=== PATIENT | male | born 1940 | race Caucasian/White ===

== ENCOUNTER 2018-08-31 09:24 | Emergency (ER) | payer MEDICARE, OTHER ==
[~2018-08-31] VITALS: Ht 182.9 cm; Wt 81.2 kg
[2018-08-31] MEDS ORDERED: ZESTRIL40 MG PO ×2 (09:37→09:39)
[2018-08-31] MEDS ORDERED: CHLORTHALIDONE25 MG PO (09:37)
[2018-08-31] MEDS ORDERED: ASPIR 8181 MG PO (09:38)
[2018-08-31] MEDS ORDERED: ATORVASTATIN CA20 MG PO (09:38)
[2018-08-31] MEDS ORDERED: CENTRUM SILVER1 EAC3 PO (09:38)
[2018-08-31] MEDS ORDERED: RANITIDINE HCL150 M1 PO (09:39)
== END 2018-08-31 10:26 | disposition home or self-care (01) ==
LOC: ED 09:24
PROC: 0HQFXZZ Repair Right Hand Skin, External Approach (ICD-10-PCS; principal; 2018-08-31)
DX: S61.411A Laceration without foreign body of right hand, initial encounter (principal); W26.8XXA Contact with other sharp object(s), not elsewhere classified, initial encounter; Z79.899 Other long term (current) drug therapy; Z79.82 Long term (current) use of aspirin
CPT/HCPCS: 12002; 90471; 90715; 99282-25

== ENCOUNTER 2020-01-24 07:20 | Emergency (ER) | payer MEDICARE, OTHER ==
[~2020-01-24] VITALS: Ht 182.9 cm; Wt 124.7 kg
--- OUTSIDE RECORDS SUMMARY | ~2020-01-24 | XMS | Encounter Summary ---
Demographics + + + | Address | [address] | | | [place] [address] | + + + | Home Phone | | + + + | Preferred Language | Unknown | + + + | Marital Status | | + + + | Protestant Affiliation | Unknown | + + + | Race | Unknown | + + + | Ethnic Group | Unknown | + + + Author + + + | Author | [facility] | | | and [place] | + + + | Organization | [facility] | | | and [place] | + + + | Address | Unknown | + + + | Phone | Unavailable | + + + Support + + +---------+ + | Name | Relationship | Address | Phone | + + +---------+ + | Kaye Ramos | ECON | Unknown | | + + +---------+ + Care Team Providers + +------+ + | Care Manager Mall Name | Role | Phone | + +------+ + | Lorena Aldridge | PCP | | + +------+ + Reason for Visit + + + | Reason | Comments | + + + | Hypertension | regular follow up | + + + Encounter Details +--------+---------+ + + + | Date | Type | Department | Care Team | Description | +--------+---------+ + + + | 07/18/ | Office | [facility] | Lorena Aldridge | HYPERTENSION, | | 2011 | Visit | [facility] [place] | L, 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[address] | 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, | | | | [address] | [address] [place] | CONTROLLED (Primary | | | | [place] | [address] | Dx); Hyperlipidemia; | | | | [address] | | Impaired fasting | | | | [phone] | | glucose; Prostate | | | | | | cancer screening; | | | | | | Needs flu shot; | | | | | | Exposure to | | | | | | Streptococcal | | | | | | pharyngitis | +--------+---------+ + + + Social History + +-------+ +--------+ + | Tobacco Use | Types | Packs/Day | Years | Date | | | | | Used | | + +-------+ +--------+ + | Former Smoker | | | | Quit: 05/26/1986 | + +-------+ +--------+ + + + +---------+ + | Alcohol Use | Drinks/Week | oz/Week | Comments | + + +---------+ + | Yes | | | 6 pack a day | + + +---------+ + + + + | Sex Assigned at | Date Recorded | | | | + + + | Not on file | | + + + documented as of this encounter Last Filed Vital Signs + + + + + | Vital Sign | Reading | Time Taken | Comments | + + + + + | Blood Pressure | 134/76 | 07/18/2012 8:06 AM | | | | | PST | | + + + + + | Pulse | 76 | 07/18/2012 8:06 AM | | | | | PST | | + + + + + | Temperature | - | - | | + + + + + | Respiratory Rate | 18 | 07/18/2012 8:06 AM | | | | | PST | | + + + + + | Oxygen Saturation | - | - | | + + + + + | Inhaled Oxygen | - | - | | | Concentration | | | | + + + + + | Weight | 117.5 kg (259 lb) | 07/18/2012 8:06 AM | | | | | PST | | + + + + + | Height | - | - | | + + + + + | Body Mass Index | 35.37 | 07/07/2010 12:00 AM | | | | | PST | | + + + + + documented in this encounter Patient Instructions Patient Instructions Lorena Shaw ARNP - 07/18/2012 8:47 AM PSTmoniter blood p ressure documented in this encounter Progress Notes Lorena Shaw ARNP - 07/18/2012 8:26 AM PSTFormatting of this note might be dif ferent from the original. Subjective: Patient ID: Talha Ramos is a 71 y.o. male. HPI Patient's medications, allergies, past medical, surgical, social and family histories were reviewed and updated as appropriate. Here for follow-up of his hypertension Hypertension: Control and Compliance Low Sodium Diet: yes Medication compliance: good Home Blood Pressures: 1120's/60. BP: 134/76 mmHg HYPERLIPIDEMIA: Diet: Low fat, low carb dietary compliance: good Additional measures started by the patient to reduce lipids include: aerobic exercise fiber ASA Has been exposed to strep throat yesterday and is worried about getting this. No symptoms y et. Due for fasting labs and has orders already at [facility]. Review of Systems Denies Myalgias, abdominal pain, jaundice, constipation. Denies side effects of medications No evidence of medication toxicity Shortness of breath Pt denies: No headache, visual symptoms, neurologic problems, syncope No chest pain, palpitations, RODRIGUEZ, orthopnea, PND, peripheral edema No side effects from any antihypertensive medications Objective: Physical Exam Nursing note and vitals reviewed. Constitutional: He is oriented to person, place, and time. He appears well-developed and we ll-nourished. HENT: Head: Normocephalic and atraumatic. Right Ear: External ear normal. Left Ear: External ear normal. Mouth/Throat: Oropharynx is clear and moist. No oropharyngeal exudate. Eyes: Conjunctivae are normal. No scleral icterus. Neck: Normal range of motion. Neck supple. No JVD present. No thyromegaly present. No carotid bruits Cardiovascular: Normal rate, regular rhythm and normal heart sounds. No pedal edema Pulmonary/Chest: Effort normal and breath sounds normal. No respiratory distress. Musculoskeletal: He exhibits no edema. Lymphadenopathy: He has no cervical adenopathy. Neurological: He is alert and oriented to person, place, and time. Coordination normal. Skin: Skin is warm and dry. Psychiatric: He has a normal mood and affect. Assessment: 1. HYPERTENSION, ESSENTIAL, CONTROLLED Comprehensive metabolic panel, UA w/microscopic if indicated, amLODIPine (NORVASC) 5 mg tablet, hydrochlorothiazide 25 mg tablet, lisinopril (P RINIVIL,ZESTRIL) 40 MG tablet, NIFEdipine (PROCARDIA XL) 60 mg ER tablet 2. Hyperlipidemia Comprehensive metabolic panel, Lipid Profile, atorvaSTATin (LIPITOR) 20 mg tablet 3. Impaired fasting glucose Hemoglobin A1c 4. Prostate cancer screening PSA screen 5. Needs flu shot Flu vaccine greater than or equal to 3yo preservative free IM 6. Exposure to Streptococcal pharyngitis Plan: 1. HYPERTENSION, ESSENTIAL, CONTROLLED -. Blood pressure stable and goals discussed -. Continue current medications - Advised low salt diet - Advised regular cardiovascular exercise -. Labs ordered and will the patient - Follow up as needed if blood pressures are above goal Encouraged to cut back on alcohol 2. Hyperlipidemia -. Take meds as directed -. Discussed regular cardiovascular exercise and maintaining healthy wt. -. Avoid high fat/cholesterol diet -. Lipid panel and LFT's labs ordered 3. Impaired fasting glucose Continue exercise and A1C ordered 4. Prostate cancer screening PSA ordered and will send report to his urologist in [facility] 5. Needs flu shot Immunization counseling discussed by myself and updated today. Encourage d him to get Shingles vaccine as well. 6. Exposure to strep throat RX for amoxicillin sent to pharmacy and instructed patient t o start if he develops a sore throat. If he starts and is doesn't improve after being on med ss for 48 hours he is to follow-up. Med profile discussed documented in this encounter Miscellaneous Notes Miscellaneous - AURY MARK - 07/18/2012 12:00 AM PST documented in this encounter Plan of Treatment + +------+--------+ + + | Name | Type | Priori | Associated Diagnoses | Order Schedule | | | | ty | | | + +------+--------+ + + | Comprehensive | Lab | Routin | Hyperlipidemia | 1 Occurrences | | metabolic panel | | e | HYPERTENSION, | starting 07/18/2012 | | | | | ESSENTIAL, | until 07/18/2013 | | | | | CONTROLLED | | + +------+--------+ + + | Lipid Profile | Lab | Routin | Hyperlipidemia | 1 Occurrences | | | | e | | starting 07/18/2012 | | | | | | until 07/18/2013 | + +------+--------+ + + | Hemoglobin A1c | Lab | Routin | Impaired fasting | 1 Occurrences | | | | e | glucose | starting 07/18/2012 | | | | | | until 07/18/2013 | + +------+--------+ + + | UA w/microscopic if | Lab | Routin | HYPERTENSION, | 1 Occurrences | | indicated | | e | ESSENTIAL, | starting 07/18/2012 | | | | | CONTROLLED | until 07/18/2013 | + +------+--------+ + + | PSA screen | Lab | Routin | Prostate cancer | 1 Occurrences | | | | e | screening | starting 07/18/2012 | | | | | | until 07/18/2013 | + +------+--------+ + + documented as of this encounter Visit Diagnoses + + | Diagnosis | + + | HYPERTENSION, ESSENTIAL, CONTROLLED - Primary Unspecified essential hypertension | + + | Hyperlipidemia Other and unspecified hyperlipidemia | + + | Impaired fasting glucose | + + | Prostate cancer screening Special screening for malignant neoplasm of prostate | + + | Needs flu shot Need for prophylactic vaccination and inoculation against influenza | + + | Exposure to Streptococcal pharyngitis Contact with or exposure to other communicable | | diseases | + + documented in this encounter"
--- OUTSIDE RECORDS SUMMARY | ~2020-01-24 | XMS | Encounter Summary ---
Demographics + + + | Address | [address] | | | [place] [address] | + + + | Home Phone | | + + + | Preferred Language | Unknown | + + + | Marital Status | | + + + | Jainism Affiliation | Unknown | + + + | Race | Unknown | + + + | Ethnic Group | Unknown | + + + Author + + + | Author | [facility] | | | and [place] | + + + | Organization | [facility] | | | and [place] | + + + | Address | Unknown | + + + | Phone | Unavailable | + + + Support + + +---------+ + | Name | Relationship | Address | Phone | + + +---------+ + | Kaye Rmaos | ECON | Unknown | | + + +---------+ + Care Team Providers + +------+ + | Care Mail Clerk Bills Name | Role | Phone | + +------+ + | Lorena Aldridge | PCP | | + +------+ + Reason for Visit + + + | Reason | Comments | + + + | Hypertension | 6 month follow-up | + + + | Hyperlipidemia | 6 month follow-up | + + + Encounter Details +--------+---------+ + + + | Date | Type | Department | Care Team | Description | +--------+---------+ + + + | 07/21/ | Office | [facility] | Lorena Aldridge | HYPERTENSION, | | 2012 | Visit | [facility] [place] | L, 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 [address] | [place], | | | | [address] | [address] [place] | CONTR[place]LLED (Primary | | | | [place] | [address] | Dx); Hyperlipidemia; | | | | [address] | | Impaired fasting | | | | [phone] | | glucose; Screening | | | | | | PSA (prostate | | | | | | specific antigen) | +--------+---------+ + + + Social History [...] + + + | Blood Pressure | 130/72 | 07/21/2013 7:19 AM | | | | | PST | | + + + + + | Pulse | 67 | 07/21/2013 7:19 AM | | | | | PST | | + + + + + | Temperature | 36.6 C (97.8 F) | 07/21/2013 7:19 AM | | | | | PST | | + + + + + | Respiratory Rate | 16 | 07/21/2013 7:19 AM | | | | | PST | | + + + + + | Oxygen Saturation | 98% | 07/21/2013 7:19 AM | | | | | PST | | + + + + + | Inhaled Oxygen | - | - | | | Concentration | | | | + + + + + | Weight | 120.7 kg (266 lb) | 07/21/2013 7:19 AM | | | | | PST | | + + + + + | Height | 185.4 cm (6' 1") | 07/21/2013 7:19 AM | | | | | PST | | + + + + + | Body Mass Index | 35.09 | 07/21/2013 7:19 AM | | | | | PST | | + + + + + documented in this encounter Progress Notes Lorena Aldridge ARNP - 07/21/2013 7:30 AM PSTFormatting of this note might be differen t from the original. Subjective: Talha Ramos is a 72 y.o. male patient of Lorena Aldridge [facility]. Chief Complaint: Hypertension and Hyperlipidemia Here is here for his 6 month follow-up of HTN and high cholesterol Hypertension: Control and Compliance Low Sodium Diet: yes Medication compliance: good Home Blood Pressures: not checking BP: 130/72 mmHg Pt denies: No headache, visual symptoms, neurologic problems, syncope No chest pain, palpitations, peripheral edema No side effects from any antihypertensive medications HYPERLIPIDEMIA: Diet: Low fat, low carb dietary compliance: good Denies side effects of medications No evidence of medication toxicity Denies Myalgias, abdominal pain, jaundice, constipation. Needs check of PSA for his urologist. No Known Allergies Medications: He has a current medication list which includes the following prescription(s): amlodipine, aspirin, atorvastatin, calcium carbonate antacid, vitamin d3, hydrochlorothiazide, lisinopri l, a thru z advanced, nifedipine, zantac, and trospium. Past Medical History He has a past medical history of Prostatism; Nocturia; Alcohol abuse; Obesity; Metabolic sy ndrome; Basal cell carcinoma; Actinic keratosis; and Shoulder bursitis. Past Surgical History He has past surgical history that includes Tonsillectomy and cataract x2 both eyes. Family History: His family history includes Alzheimer's disease in his mother; Heart attack in his father; Heart disease in his father; and High blood pressure in his father. Social History: He reports that he quit smoking about 27 years ago. He does not have any smokeless tobacco history on file. He reports that he drinks alcohol. He reports that he does not use illicit drugs. Review of Systems Pertinent items are noted in HPI. Objective: BP 130/72 | Pulse 67 | Temp 36.6 C (97.8 F) (Temporal) | Resp 16 | Ht 1.854 m (6' 1") | Wt 120.657 kg (266 lb) | BMI 35.09 kg/m2 | SpO2 98% General Appearance: Alert, cooperative, no distress, appears stated age Head: Normocephalic, without obvious abnormality, atraumatic Eyes: PERRL, conjunctiva/corneas clear Ears: Normal TM's and external ear canals, and acuity Nose: Nares normal Throat: Lips, mucosa, and tongue normal; Posterior pharynx normal Neck: Supple, symmetrical, no adenopathy, thyroid: not enlarged, symmetric, no tenderness/m ass/nodules, no carotid bruit or JVD Lungs: Clear to auscultation bilaterally, respirations unlabored Heart: Regular rate and rhythm, S1, S2 normal, no murmur, rub or gallop Extremities: Extremities normal, atraumatic, no cyanosis or edema Skin: Skin color, texture, turgor normal, no rashes or lesions Neurologic: Nonfocal. Alert and oriented. Balance and gait normal. No results found for this or any previous visit. Assessment and Plans: Talha was seen today for hypertension and hyperlipidemia. Diagnoses and associated orders for this visit: Hypertension, essential, controlled -. Blood pressure stable and goals discussed -. Continue current medications - Advised low salt diet - Advised regular cardiovascular exercise -. Labs ordered and will notify patient - Follow up as needed if blood pressures are above goal - Comprehensive Metabolic Panel; Future - Microalbumin/Creatinine Ratio, Urine; Future - amLODIPine (NORVASC) 5 mg tablet; Take 1 tablet by mouth Daily. - hydrochlorothiazide 25 mg tablet; Take 1 tablet by mouth every morning. - lisinopril (PRINIVIL,ZESTRIL) 40 MG tablet; Take 1 tablet by mouth 2 times daily. - NIFEdipine (PROCARDIA XL) 60 mg ER tablet; Take 1 tablet by mouth Daily. Hyperlipidemia -. Take meds as directed -. Discussed regular cardiovascular exercise and maintaining healthy wt. -. Avoid high fat/cholesterol diet -. Lipid panel and LFT's ordered - Lipid Profile; Future - atorvaSTATin (LIPITOR) 20 mg tablet; Take 0.5 tablets by mouth Daily. 10 mg by mouth eyad y Impaired fasting glucose - Microalbumin/Creatinine Ratio, Urine; Future - Hemoglobin A1C; Future Screening psa (prostate specific antigen) - PSA, Screen; Future Care instructions and warning signs were discussed. Medications per orders. Refilled for one year Labs and investigations per orders. Recheck 6 months. Sooner prn. Orders for labs to be done at [facility] provided This note was dictated using [employer] voice recognition software. Every attempt was made for accuracy, but grammatical errors may exist. If there are questions regarding this, please co ntact provider. d ocumented in this encounter Plan of Treatment + +------+--------+ + + | Name | Type | Priori | Associated Diagnoses | Order Schedule | | | | ty | | | + +------+--------+ + + | Comprehensive | Lab | Routin | HYPERTENSION, | 1 Occurrences | | Metabolic Panel | | e | ESSENTIAL, | starting 07/21/2013 | | | | | CONTROLLED | until 07/21/2014 | + +------+--------+ + + | Lipid Profile | Lab | Routin | Hyperlipidemia | 1 Occurrences | | | | e | | starting 07/21/2013 | | | | | | until 07/21/2014 | + +------+--------+ + + | Microalbumin/Creatin | Lab | Routin | HYPERTENSION, | 1 Occurrences | | ine Ratio, Urine | | e | ESSENTIAL, | starting 07/21/2013 | | | | | CONTROLLED Impaired | until 07/21/2014 | | | | | fasting glucose | | + +------+--------+ + + | Hemoglobin A1C | Lab | Routin | Impaired fasting | 1 Occurrences | | | | e | glucose | starting 07/21/2013 | | | | | | until 07/21/2014 | + +------+--------+ + + | PSA, Screen | Lab | Routin | Screening PSA | 1 Occurrences | | | | e | (prostate specific | starting 07/21/2013 | | | | | antigen) | until 07/21/2014 | + +------+--------+ + + documented as of this encounter Visit Diagnoses + + | Diagnosis | + + | HYPERTENSION, ESSENTIAL, CONTROLLED - Primary Unspecified essential hypertension | + + | Hyperlipidemia Other and unspecified hyperlipidemia | + + | Impaired fasting glucose | + + | Screening PSA (prostate specific antigen) Special screening for malignant neoplasm of | | prostate | + + documented in this encounter
--- OUTSIDE RECORDS SUMMARY | ~2020-01-24 | XMS | Encounter Summary ---
Demographics + + + | Address | [address] | | | [place] [address] | + + + | Home Phone | | + + + | Preferred Language | Unknown | + + + | Marital Status | | + + + | Judaism Affiliation | Unknown | + + + | Race | Unknown | + + + | Ethnic Group | Unknown | + + + Author + + + | Author | [facility] | | | and [place] | + + + | Organization | [facility] | | | and [place] [...] Team Providers + +------+ + | Care Pleat Taper Name | Role | Phone | + +------+ + PCP | Unavailable | + +------+ + Encounter Details +--------+ + + + + | Date | Type | Department | Care Team | Description | +--------+ + + + + | 06/04/ | [facility] | [facility] | Lorena Aldridge | | | 2007 | Encounter | MED CTR XRAY [address] | L, 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
--- OUTSIDE RECORDS SUMMARY | ~2020-01-24 | XMS | Encounter Summary ---
Demographics + + + | Address | [address] | | | [place] [address] | + + + | Home Phone | | + + + | Preferred Language | Unknown | + + + | Marital Status | | + + + | Mu-Ism Affiliation | Unknown | + + + | Race | Unknown | + + + | Ethnic Group | Unknown | + + + Author + + + | Author | [facility] | | | and [place] | + + + | Organization | [facility] | | | and [place] [...] Team Providers + +------+ + | Care Industrial Retrofit Designer Name | Role | Phone | + +------+ + | Lorena Aldridge | PCP | | + +------+ + Reason for Visit + +--------+ + | Reason | Onset | Comments | | | Date | | + +--------+ + | Medication Refill | 08/14/ | | | | 2012 | | + +--------+ + Encounter Details +--------+--------+ + + + | Date | Type | Department | Care Team | Description | +--------+--------+ + + + | 08/14/ | Refill | [facility] | Lorena Aldridge | Medication Refill | | 2012 | | [facility] | [place], [place] [address] | | | | | [address] | [place] | | | | | [place] | [address] | | | | | [address] | | | | | | [phone] | | | +--------+--------+ + + + Social History + +-------+ [...] filedocumented as of this encounter Visit Diagnoses + + | Diagnosis | + + | HYPERTENSION, ESSENTIAL, CONTROLLED - Primary Unspecified essential hypertension | + + documented in this encounter"
--- OUTSIDE RECORDS SUMMARY | ~2020-01-24 | XMS | Encounter Summary ---
Demographics + + + | Address | [address] | | | [place] [address] | + + + | Home Phone | | + + + | Preferred Language | Unknown | + + + | Marital Status | | + + + | Buddhist Affiliation | Unknown | + + + | Race | Unknown | + + + | Ethnic Group | Unknown | + + + Author + + + | Author | [facility] | | | and [place] | + + + | Organization | [facility] | | | and [place] [...] Team Providers + +------+ + | Care Literature Professor Name | Role | Phone | + +------+ + | Lorena Aldridge | PCP | | + +------+ + Encounter Details +--------+ + + + + | Date | Type | Department | Care Team | Description | +--------+ + + + + | 04/03/ | Abstract | [facility] | [facility] | | | 2011 | | Conversion Location | SR | | | | | [address] | | | | | | [place], [place] | | | | | | [address] | | | | | | [phone] | | | +--------+ + + + [...] + + + | Blood Pressure | 130/70 | 01/17/2012 12:00 AM | | | | | PDT | | + + + + + | Pulse | - | - | | + + + + + | Temperature | - | - | | + + + + + | Respiratory Rate | - | - | | + + + + + | Oxygen Saturation | - | - | | + + + + + | Inhaled Oxygen | - | - | | | Concentration | | | | + + + + + | Weight | 119.2 kg (262 lb | 01/17/2012 12:00 AM | | | | 11.2 oz) | PDT | | + + + + + | Height | 182.2 cm (5' 11.75") | 07/07/2010 12:00 AM | | | | | PST | | + + + + + | Body Mass Index | 35.88 | 07/07/2010 12:00 AM | | | | | PST | | + + + + + documented in this encounter Plan of Treatment Not on filedocumented as of this encounter Visit Diagnoses Not on filedocumented in this encounter
--- OUTSIDE RECORDS SUMMARY | ~2020-01-24 | XMS | Encounter Summary ---
Demographics + + + | Address | [address] | | | [place] [address] | + + + | Home Phone | | + + + | Preferred Language | Unknown | + + + | Marital Status | | + + + | Mosque Affiliation | Unknown | + + + | Race | Unknown | + + + | Ethnic Group | Unknown | + + + Author + + + | Author | [facility] | | | and [place] | + + + | Organization | [facility] | | | and [place] [...] Team Providers + +------+ + | Care Hand Blocker Name | Role | Phone | + +------+ + | Lorena Aldridge | PCP | | + +------+ + Encounter Details +--------+ + + + + | Date | Type | Department | Care Team | Description | +--------+ + + + + | 01/06/ | Hospital | [facility] | Lorena Aldridge | | | 2010 | Encounter | MED CTR LABORATORY | KRISHNA Granados [address] | | | | | [address] | [place] | | | | | [place] | [address] | | | | | [address] | | | | | | [phone] | | | +--------+ + + + [...] + + documented as of this encounter Medications at Time of Discharge + + + +---------+ + + | Medication | Sig | Dispensed | Refills | Start | End Date | | | | | | Date | | + + + +---------+ + + | Calcium Carbonate | CAPS two tablets by | | 0 | 01/06/20 | | | Antacid | mouth in the pm | | | 10 | | | (MARIA ALEJANDRA | | | | | | | ANTACID PO) | | | | | | + + + +---------+ + + | Cholecalciferol | Take 2,000 Units by | | 0 | 01/06/20 | | | (VITAMIN D3) 2000 | mouth Daily. | | | 10 | | | UNITS CAPS | | | | | | + + + +---------+ + + | Multiple | one tablet by mouth | | 0 | 01/06/20 | | | Vitamins-Minerals (A | daily | | | 10 | | | THRU Z ADVANCED) | | | | | | | TABS | | | | | | + + + +---------+ + + | ranitidine | Take 150 mg by mouth | | 0 | 01/06/20 | | | (ZANTAC) 150 MG | every evening. | | | 10 | | | capsule | | | | | | + + + +---------+ + + | amLODIPine | Take 5 mg by mouth | | 0 | 01/07/20 | | | (NORVASC) 5 mg | Daily. | | | 11 | 2 | | tablet | | | | | | + + + +---------+ + + | Aspirin | Take 325 mg by mouth | | 0 | 01/06/20 | | | Buf,UcMrp-VtGad-HnTm | Daily. | | | 10 | 3 | | r, (ASCRIPTIN) 325 | | | | | | | MG TABS | | | | | | + + + +---------+ + + | atorvaSTATin | 10 mg by mouth daily | | 0 | 07/07/20 | | | (LIPITOR) 20 mg | | | | 10 | 2 | | tablet | | | | | | + + + +---------+ + + | lisinopril | Take 40 mg by mouth | | 0 | 07/07/20 | | | (PRINIVIL,ZESTRIL) | 2 times daily. | | | 10 | 2 | | 40 MG tablet | | | | | | + + + +---------+ + + | tolterodine | Take 4 mg by mouth | | 0 | 01/06/20 | | | (DETROL LA) 4 MG 24 | Daily. | | | 10 | 3 | | hr capsule | | | | | | + + + +---------+ + + documented as of this encounter Plan of Treatment Not on filedocumented as of this encounter Visit Diagnoses Not on filedocumented in this encounter"
--- OUTSIDE RECORDS SUMMARY | ~2020-01-24 | XMS | Encounter Summary ---
Demographics + + + | Address | [address] | | | [place] [address] | + + + | Home Phone | | + + + | Preferred Language | Unknown | + + + | Marital Status | | + + + | Confucianist Affiliation | Unknown | + + + | Race | Unknown | + + + | Ethnic Group | Unknown | + + + Author + + + | Author | [facility] | | | and [place] | + + + | Organization | [facility] | | | and [place] [...] Team Providers + +------+ + | Care Inspector Final Assembly Mechanical Name | Role | Phone | + +------+ + PCP | Unavailable | + +------+ + Encounter Details +--------+ + + + + | Date | Type | Department | Care Team | Description | +--------+ + + + + | 03/20/ | Hospital | [facility] | | | | 1999 | Encounter | MED CTR GENERIC OP | | | | | | CONV DEPT [address] | | | | | | [place], | | | | | | [place] [address] | | | | | | [phone] | | | +--------+ + + + [...]
--- OUTSIDE RECORDS SUMMARY | ~2020-01-24 | XMS | Encounter Summary ---
Demographics + + + | Address | [address] | | | [place] [address] | + + + | Home Phone | | + + + | Preferred Language | Unknown | + + + | Marital Status | | + + + | Temple Affiliation | Unknown | + + + | Race | Unknown | + + + | Ethnic Group | Unknown | + + + Author + + + | Author | [facility] | | | and [place] | + + + | Organization | [facility] | | [...] Team Providers + +------+ + | Care Almond Huller Name | Role | Phone | + +------+ + | Lorena Aldridge | PCP | | + +------+ + Encounter Details +--------+ + + + + | Date | Type | Department | Care Team | Description | +--------+ + + + + | 07/04/ | Abstract | [facility] | Lorena Aldridge | | | 2011 | | MEDICINE [place] | KR[place]NA Granados [address] | | | | | [address] | [place] [place] | | | | | [place] | [address] | | | | | [address] | | | | | | [phone] | | | +--------+ + + + [...] +---------+ + | Yes | | | | + + +---------+ + + + + | Sex Assigned at | Date Recorded | | | | + + + | Not on file | | + + + documented as of this encounter Plan of Treatment Not on filedocumented as of this encounter Visit Diagnoses Not on filedocumented in this encounter"
--- OUTSIDE RECORDS SUMMARY | ~2020-01-24 | XMS | Encounter Summary ---
Demographics + + + | Address | [address] | | | [place] [address] | + + + | Home Phone | | + + + | Preferred Language | Unknown | + + + | Marital Status | | + + + | Episcopalian Affiliation | Unknown | + + + | Race | Unknown | + + + | Ethnic Group | Unknown | + + + Author + + + | Author | [facility] | | | and [place] | + + + | Organization | [facility] | | | and [...] Team Providers + +------+ + | Care Community Mental Health Social Worker Name | Role | Phone | + +------+ + | Lorena Aldridge | PCP | | + +------+ + Encounter Details +--------+ + + + + | Date | Type | Department | Care Team | Description | +--------+ + + + + | 07/07/ | Hospital | [facility] | Lorena Aldridge | | | 2009 | Encounter | MED CTR LABORATORY | [address] Granados [address] | | | | | [address] | [place] | | | | | [place] | [address] | | | | | [address] | | | | | | [phone] | | | +--------+ + + + [...] | 0 | 01/06/20 | | | Buf,CaCcc-QvChw-FtIy | Daily. | | | 10 | [...]
--- OUTSIDE RECORDS SUMMARY | ~2020-01-24 | XMS | Encounter Summary ---
Demographics + + + | Address | [address] | | | [place] [address] | + + + | Home Phone | | + + + | Preferred Language | Unknown | + + + | Marital Status | | + + + | Gnosticism Affiliation | Unknown | + + + | Race | Unknown | + + + | Ethnic Group | Unknown | + + + Author + + + | Author | [facility] | | | and [place] | + + + | Organization | [facility] | | | and [place] [...] Team Providers + +------+ + | Care Roll Scale Worker Name | Role | Phone | + +------+ + PCP | Unavailable | + +------+ + Encounter Details +--------+ + + + + | Date | Type | Department | Care Team | Description | +--------+ + + + + | 06/15/ | [facility] | [facility] | Lorena Aldridge | | | 2007 | Encounter | MED CTR XRAY [address] | L, SENIOR TEST ANALYST [address] | | | | | [place] | [place] | | | | | [place] [address] | [address] | | | | | [phone] | | | +--------+ + + + [...]
--- OUTSIDE RECORDS SUMMARY | ~2020-01-24 | XMS | Clinical Summary ---
Demographics + + + | Address | [address] | | | [place] [address] | + + + | Home Phone | | + + + | Preferred Language | Unknown | + + + | Marital Status | | + + + | Anglican Affiliation | Unknown | + + + | Race | Unknown | + + + | Ethnic Group | Unknown | + + + Author + + + | Author | [facility] | | | and [place] | + + + | Organization | [facility] | | | and [place] [...] Team Providers + +------+ + | Care Cloth Desizing Range Tender Name | Role | Phone | + [...] | | e | | THRU Z ADVANCED) | | | | 10 | | [...] + +--------+ | MEDICARE | MEDICA | [id number] | 10/22/19 | [phone] | | Medica | | | RE | | 08-Pre | 5 | | re | | | PART A | | sent | | | | | | AND B | | | | | | + +--------+ +--------+ + +--------+ | MODA | MODA | [id number] | 02/21/20 | [phone] | [address] | Indemn | | | HEALTH | | 12-Pre | 9 | [address] | ity | | | MDCR | | sent | | [place], | | | | [place] | | | | [place] [address] | | + +--------+ +--------+ + +--------+ + +--------+ +--------+ + + | Guarantor Name | Accoun | Relation to | Date | Phone | Billing Address | | | t Type | Patient | of | | | | | | | | | | + +--------+ +--------+ + + | Talha Ramos | Person | Self [birth year] | | | al/Fam | | 1941 | [phone] | [place] [address] | | | love | | | 9 (Home) | | + +--------+ +--------+ + + Advance Directives + + + + + | Type | Date Recorded | Patient | Explanation | | | | Back Hoe Operator | | + + + + + | Power of | | | | | Septic Tank Setter | | | | + + + + + | Advance | | | | | Directive | | | | + + + + +
--- OUTSIDE RECORDS SUMMARY | ~2020-01-24 | XMS | Encounter Summary ---
Demographics + + + | Address | [address] | | | [place] [address] | + + + | Home Phone | | + + + | Preferred Language | Unknown | + + + | Marital Status | | + + + | Islam Affiliation | Unknown | + + + | Race | Unknown | + + + | Ethnic Group | Unknown | + + + Author + + + | Author | [facility] | | | and [place] | + + + | Organization | [facility] | | | and [place] [...] Team Providers + +------+ + | Care Dinker Name | Role | Phone | + +------+ + | Lorena Aldridge | PCP | | + +------+ + Reason for Visit +--------+--------+ + | Reason | Onset | Comments | | | Date | | +--------+--------+ + | Other | 07/18/ | | | | 2011 | | +--------+--------+ + Encounter Details +--------+ + + + + | Date | Type | Department | Care Team | Description | +--------+ + + + + | 07/18/ | Telephone | [facility] | Lorena Aldrdige | Other | | 2011 | | MEDICINE [place] | L, KRISHNA [address] | | | | | [address] | [address] [place] | | | | | [place] | [address] | | | | | [address] | | | | | | [phone] | | | +--------+ + + + [...] + + documented as of this encounter Miscellaneous Notes Telephone Encounter - Mary Redd - 07/18/2012 5:51 PM PSTPatient notified.Electronicall y signed by Mary Redd at 07/18/2012 5:52 PM PSTTelephone Encounter - Maranda Mcgraw RN - 07/18/2012 5:10 PM PSTShortage should be temporary. One month supply sent to [facility] in [place]. Please let patient know.Electronically jake d by Maranda Mcgraw RN at 07/18/2012 5:11 PM PSTTelephone Encounter - Sully Gutierrez - 07/18/2012 1:52 PM PSTPatient received a call from [facility]. They t old him that they do not have any Lipitor and they are not sure how long it will be before t hey get more. He is wondering if he can get a 1 month supply called in to a local pharmacy, [facility] in [place], or if there is something else that Lorena suggests? He has 9 pills left. He can be reached at [phone]. Sully Gutierrez documented in this enco unter Plan of Treatment Not on filedocumented as of this encounter Visit Diagnoses + + | Diagnosis | + + | Hyperlipidemia - Primary Other and unspecified hyperlipidemia | + + documented in this encounter"
--- OUTSIDE RECORDS SUMMARY | ~2020-01-24 | XMS | Encounter Summary ---
Demographics + + + | Address | [address] | | | [place] [address] | + + + | Home Phone | | + + + | Preferred Language | Unknown | + + + | Marital Status | | + + + | Christianity Affiliation | Unknown | + + + | Race | Unknown | + + + | Ethnic Group | Unknown | + + + Author + + + | Author | [facility] | | | and [place] | + + + | Organization | [facility] | | | and [...] Team Providers + +------+ + | Care Rock Loader Name | Role | Phone | + [...] + + | 01/16/ | Office | [facility] | Lorena Aldridge | HYPERTENSION, | | 2012 | Visit | [facility] | Roberta, KRISHNA [address] | ESSENTIAL, | | | | [address] | [address] [place] [place] | CONTROLLED (Primary | | | | [place] | [address] | Dx); Hyperlipidemia; | | | | [address] | | Impaired fasting | | | | [phone] | | glucose | +--------+---------+ + + [...] matzoh crackers AVOID: Salted crackers, pretzels, popcorn; german toast, pancakes, muffins FRUITS & DESSERTS OK: [...] sauce, regular gravy, regular salad dressin g [phone] [facility], [address] [place] [address]. All rights reserve d. This information is not intended as a substitute for professional medical care. Always fo llow your healthcare professional's instructions. documented in this encounter Progress Notes Lorena Aldridge ARNP - 01/16/2013 9:43 AM PDTFormatting of this note might be differen t from the original. Subjective: Talha Ramos is a 72 y.o. male patient of Lorena Aldridge [facility]. Chief Complaint: Medication Management and Hypertension Here [...]
--- OUTSIDE RECORDS SUMMARY | ~2020-01-24 | XMS | Encounter Summary ---
Demographics + + + | Address | [address] | | | [place] [address] | + + + | Home Phone | | + + + | Preferred Language | Unknown | + + + | Marital Status | | + + + | Episcopal Affiliation | Unknown | + + + | Race | Unknown | + + + | Ethnic Group | Unknown | + + + Author + + + | Author | [facility] | | | and [place] | + + + | Organization | [facility] | | | and [place] [...] Team Providers + +------+ + | Care Sprayer Hand Name | Role | Phone | + +------+ + | Lorena Aldridge | PCP | | + +------+ + Encounter Details +--------+ + + + + | Date | Type | Department | Care Team | Description | +--------+ + + + + | 02/17/ | Abstract | [facility] | Lorena Aldridge | | | 2013 | | MEDICINE [place] | KRISHNA Granados [address] | | | | | [address] | [place] [place] | | | | | [place] | [address] | | | | | [address] | | | | | | [phone] | | | +--------+ + + + [...] + + + + + + | Clarity | Clear | | [facility] | | | | | [facility] | | | | | | [facility] | | | | | [facility] - | | | | | | LABORATORY | | + + + + + + | Specific | 1.015 | 1.005 - 1.030 | [facility] | | | [place], | | | [facility] | | | Urine | | [...] Urine | | not performed | [facility] | | | | [...] | | | [place], | | | [facility] | | [...] + + | Performing | Address | City/[facility] | Phone Number | | Organization | | | | + + + + + | [facility] | [address] | [place] | [phone] | | [facility] | | [address] | | | - LABORATORY | | | | + + + + + | [facility] | [address] | [place], [place] | | | [facility] | | [address], [facility] | | | - LABORATORY | | [...] | | | | mmol/L | [facility] | | | | [...] | | | | | mg/dL | [facility] | | | | | [...] + | [facility] | [address] | [place], [place] | [phone] | | [facility] | | [address] | | | - LABORATORY | | | | + + + + + | [facility] | [address] | [place] | | | [facility] | | [email or web address] | | | - LABORATORY | | [...] | | | LAB | | | Finnish, | | | | | | External [...]
--- OUTSIDE RECORDS SUMMARY | ~2020-01-24 | XMS | Encounter Summary ---
Demographics + + + | Address | [address] | | | [place] [address] | + + + | Home Phone | | + + + | Preferred Language | Unknown | + + + | Marital Status | | + + + | Baptism Affiliation | Unknown | + + + | Race | Unknown | + + + | Ethnic Group | Unknown | + + + Author + + + | Author | [facility] | | | and [place] | + + + | Organization | [facility] | | | and [place] | [...] Team Providers + +------+ + | Care Yarn Salvager Name | Role | Phone | + [...] + + | 01/19/ | Office | [facility] | Lorena Aldridge | HYPERTENSION, | | 2013 | Visit | MEDICINE [place] | L, SLATE CUTTER [address] | [place], | | | | [address] | [address] [place] | [place]OLLED (Primary | | | | [place] | [address] | Dx); Hyperlipidemia; | | | | [address] | | Alcohol abuse | | | | [phone] | | | +--------+---------+ + + + [...] encounter Progress Notes Lorena Aldridge ARNP - 01/19/2014 8:22 AM PDTFormatting of this note might be differen t from the original. Subjective: Talha Ramos is a 73 y.o. male patient of Lorena Aldridge. Chief Complaint: Hypertension and Hyperlipidemia here for six-month followup regarding his hypertension and hyperlipidemia. He has labs do ne at the [facility] and has not had those done yet. [...] carcinoma; Actinic keratosis; Shoulder bursitis; and Glaucoma (07-21-13). Past Surgical History He has past surgical [...] Sooner prn. This note was dictated using [employer] voice recognition software. Every attempt was made [...]
[~2020-01-24 07:20] MED LIST: ASPIR 8181 MG PO; ATORVASTATIN CA20 MG PO; CENTRUM SILVER1 EAC3 PO; CHLORTHALIDONE25 MG PO; RANITIDINE HCL150 M1 PO; ZESTRIL40 MG PO
[2020-01-24] MEDS ORDERED: ALLOPURINOL100 MG PO (07:36)
[2020-01-24] MEDS ORDERED: NORCO 5-325 TA1 EACH PO (09:05)
--- NOTE | 2020-01-24 17:18 | EKG ---
[facility] [address] [facility] [place] [address] Signed Sinus rhythm with premature atrial complexes Right bundle branch block Left anterior fascicular block Bifascicular block Abnormal ECG No previous ECGs available Confirmed by FADUMO OCHOA MD ([id number]) on 01/24/2020 5:18:07 PM Electronically Signed By: FADUMO OCHOA MD 01/24/20 1718 PATIENT NAME: LES MERCADO Electrocardiogram DATE OF : 44 PHYSICIAN: FADUMO OCHOA MD REPORT #: [id number] REPORT IS CONFIDENTIAL AND NOT TO BE RELEASED WITHOUT AUTHORIZATION
== END 2020-01-24 09:31 | disposition home or self-care (01) ==
LOC: ED 07:20
DX: M25.562 Pain in left knee (principal); R60.0 Localized edema; I10 Essential (primary) hypertension; Z87.891 Personal history of nicotine dependence; Z79.899 Other long term (current) drug therapy; Z79.82 Long term (current) use of aspirin
CPT/HCPCS: 73560; 80053; 81001; 83735; 83880; 84484; 85025; 93005; 93010; 99284-25

== ENCOUNTER 2020-04-20 11:31 | Emergency (ER) | payer MEDICARE, OTHER ==
[~2020-04-20] VITALS: Ht 182.9 cm; Wt 124.7 kg
[~2020-04-20 11:31] MED LIST changes: +ALLOPURINOL100 MG PO; +NORCO 5-325 TA1 EACH PO
[2020-04-20] MEDS ORDERED: FAMOTIDINE20 MG PO (11:41)
--- NOTE | 2020-04-20 13:55 | EKG ---
[facility] [address] [facility] [place] [address] Signed Sinus tachycardia with premature atrial complexes Right bundle branch block Inferior infarct , age undetermined Anterolateral infarct , age undetermined Abnormal ECG When compared with ECG of 24-JAN-2020 07:57, Left anterior fascicular block is no longer present Anterior infarct is now present Anterolateral infarct is now present Inferior infarct is now present Confirmed by SHAE CORONEL DO ([id number]) on 04/20/2020 1:55:27 PM Electronically Signed By: SHAE CORONEL DO 04/20/20 1355 PATIENT NAME: LES MERCADO Electrocardiogram DATE OF : 44 PHYSICIAN: SHAE CORONEL DO REPORT #: [id number] REPORT IS CONFIDENTIAL AND NOT TO BE RELEASED WITHOUT AUTHORIZATION
--- NOTE | 2020-04-21 13:15 | OR ---
[facility] [address] [place], [place] [address] Signed DATE OF OPERATION: 04/20/2020 SURGEON: Richi Castro MD TIME: 01:50 p.m. PREOPERATIVE DIAGNOSIS: Systemic sepsis with hypotension, need for central venous access. POSTOPERATIVE DIAGNOSIS: Systemic sepsis with hypotension, need for central venous access. PROCEDURE: Placement of right internal jugular central venous catheter. ANESTHESIA: 1% lidocaine. INDICATIONS: A 79-year-old white man, who presented to the emergency room and evaluated by Dr. Croft and central venous catheter is requested for further management of pressor agents and fluid resuscitation. He has presumed sepsis of unknown etiology. The risks of bleeding, infection, and pneumothorax and so forth were reviewed with him and his , they understand and wished to proceed. FINDINGS: Dark, nonpulsatile blood was noted from the right internal jugular vein on first pass. Passage of the wire was without impediment. An Arrow Blue Tip triple-lumen catheter placed without problem showing dark, nonpulsatile blood upon withdrawal of the distal port. A postprocedure chest x-ray was requested; however, the patient is getting set up for a CT angiogram and verification of line placement will likely be concurrent with that study. DESCRIPTION OF PROCEDURE: The patient was placed in a Trendelenburg position with the head turned to the left. The right neck and upper infraclavicular area were prepared with a chlorhexidine solution and draped sterilely. A 1% lidocaine was injected over the right sternocleidomastoid muscle inferior to the crossing the external jugular vein. Using a Seldinger technique, the right internal jugular vein was easily accessed on first pass Electronically Signed By: RICHI CASTRO MD 04/21/20 1315 PATIENT NAME: LES MERCADO OPERATIVE REPORT DATE OF : 44 REPORT #: [id number] PHYSICIAN: RICHI CASTRO MD PCP: MORRIS GASTON REPORT IS CONFIDENTIAL AND NOT TO BE RELEASED WITHOUT AUTHORIZATION [facility] [address] [place], [place] [address] Signed showing dark nonpulsatile blood. A flexible J-wire was passed down with the needle. The needle was removed. The site was incised with an #11 blade and dilated with an enclosed blue dilator and subsequently a previously inspected and irrigated Arrow Blue Tip triple-lumen catheter passed over the wire. The wire was removed. Aspiration of the distal port showed dark nonpulsatile blood. The catheter was withdrawn several centimeters, appropriately closed and secured within close collar device and sutured. An anti-infective disk was applied as was a SorbaView dressing. A postprocedure chest x-ray was requested, but I am advised that CT angiogram will be performed, and therefore verification of lying position most expediently be undertaken on that basis. MD RACHAEL Ulrich/NICHOLAS /[id number] cc: Austin Croft MD Copies: AUSTIN CROFT MD ~ Electronically Signed By: RICHI CASTRO MD 04/21/20 1315 PATIENT NAME: LES MERCADO OPERATIVE REPORT DATE OF : 44 REPORT #: [id number] PHYSICIAN: RICHI CASTRO MD PCP: MORRIS GASTON REPORT IS CONFIDENTIAL AND NOT TO BE RELEASED WITHOUT AUTHORIZATION
--- NOTE | 2020-04-21 13:15 | CONS ---
[facility] [address], [place] [address] Signed DATE OF CONSULTATION: 04/20/2020 TIME: 1:30 p.m. PROBLEM: Significant hypotension, presumed sepsis, need for central venous access. CONSULTING PHYSICIAN: Richi Castro MD REQUESTING PHYSICIAN: Austin Croft MD PROBLEM: This 79-year-old white man has been hunting in the gaming and presents to the emergency room today feeling very poorly. He was noted to have significant hypotension and tachycardia and has been unresponsive to fluid bolus by peripheral IV. Pressor agents have been initiated and it is anticipated that he have pressor agents during the course of his evaluation for his presumed sepsis of unknown etiology. The patient denies any concurrent use of anticoagulants of any sort. He is accompanied by his . Laboratory studies showing a white count of only 11.1, hematocrit of 51.1. Chem profile showing a creatinine elevation of 1.31 and lactic acid is 6.9. Troponin is greater than 0.090. BNP of 245. Urinalysis is pending. Coag studies show a D-dimer of 2400. The patient denies any exposure to anyone with known COVID disease. REVIEW OF SYSTEMS: Denies chest pain, but does have some interscapular pain. Has no shortness of breath per se. PHYSICAL EXAMINATION: GENERAL: An obese white man accompanied by his . VITAL SIGNS: Blood pressure on my evaluation with systolic pressure of 74. His pulse was 110, initially 106 now. NECK: Shows no thyromegaly or cervical adenopathy. Trendelenburg position does left visualization of external jugular veins. Clavicles are not deformed. CHEST: Shows normal respiratory excursion without tachypnea. ABDOMEN: Obese, but soft and nontender. EXTREMITIES: Show no clubbing, cyanosis, edema, or petechiae. Electronically Signed By: RICHI CASTRO MD 04/21/20 1315 PATIENT NAME: LES MERCADO CONSULTATION DATE OF : 44 REPORT #: [id number] PHYSICIAN: RICHI CASTRO MD PCP: MORRIS GASTON REPORT IS CONFIDENTIAL AND NOT TO BE RELEASED WITHOUT AUTHORIZATION [facility] [address], [place] [address] Signed ASSESSMENT: The patient has requested for central venous access to allow for pressor agents and further critical management. The risks of bleeding, infection, pneumothorax, and other unforeseen complications related to central line placement have been reviewed with him and his . They understand and wished to proceed. A signed consent form has been obtained. MD RACHAEL Ulrich/MODL /[id number] cc: Austin Croft MD Copies: AUSTIN CROFT MD ~ Electronically Signed By: RICHI CASTRO MD 04/21/20 1315 PATIENT NAME: LES MERCADO CONSULTATION DATE OF : 44 REPORT #: [id number] PHYSICIAN: RICHI CASTRO MD PCP: MORRIS GASTON REPORT IS CONFIDENTIAL AND NOT TO BE RELEASED WITHOUT AUTHORIZATION
== END 2020-04-20 16:06 | disposition short-term general hospital (02) ==
LOC: ED 11:31
DX: I26.99 Other pulmonary embolism without acute cor pulmonale (principal); I10 Essential (primary) hypertension; Z87.891 Personal history of nicotine dependence; Z79.899 Other long term (current) drug therapy; Z79.82 Long term (current) use of aspirin
CPT/HCPCS: 36556; 51702; 71045; 71260; 80053; 81001; 83605; 83735; 83880; 84484; 85025; 85379; 85610; 85730; 93005; 93010; 99285-25; J0692; J2270; J2997; J3370; J7030; J7060; Q9967

== ENCOUNTER 2020-05-02 13:53 | Emergency (ER) | payer MEDICARE, OTHER ==
[~2020-05-02] VITALS: Ht 182.9 cm; Wt 122.5 kg
--- OUTSIDE RECORDS SUMMARY | ~2020-05-02 | XMS | Encounter Summary ---
Demographics + + + | Address | [address] | | | [place] [address] | + + + | Home Phone | | + + + | Preferred Language | Unknown | + + + | Marital Status | | + + + | Bahai Affiliation | Unknown | + + + | Race | White | + + + | Ethnic Group | Not or | + + + Author + + + | Author | [facility] | | | and [place] | + + + | Organization | [facility] | | | and [place] | + + + | Address | Unknown | + + + | Phone | Unavailable | + + + Support + + +---------+ + | Name | Relationship | Address | Phone | + + +---------+ + | Kaye Ramos | ECON | Unknown | | + + +---------+ + Care Team Providers + +------+ + | Care Fire Safety Inspector Name | Role | Phone | + +------+ + | Lorena Aldridge | PCP | | + +------+ + Reason for Visit + + + | Reason | Comments | + + + | Medication | | | Management | | + + + | Hypertension | | + + + Encounter Details +--------+---------+ + + + | Date | Type | Department | Care Team | Description | +--------+---------+ + + + | 01/16/ | Office | [facility] | Lorena Aldridge | HYPERTENSION, | | 2012 | Visit | MEDICINE [place] | [place] [address] [address] | [place], | | | | [address] | [place] [place] | CONTROLLED (Primary | | | | [place] | [address] | Dx); Hyperlipidemia; | | | | [address] | | Impaired fasting | | | | [phone] | | glucose | +--------+---------+ + + + Social History [...] + + + | Blood Pressure | 134/72 | 01/16/2013 9:30 AM | | | | | PDT | | + + + + + | Pulse | 82 | 01/16/2013 9:30 AM | | | | | PDT | | + + + + + | Temperature | 36.8 C (98.2 F) | 01/16/2013 9:30 AM | | | | | PDT | | + + + + + | Respiratory Rate | 16 | 01/16/2013 9:30 AM | | | | | PDT | | + + + + + | Oxygen Saturation | 96% | 01/16/2013 9:30 AM | | | | | PDT | | + + + + + | Inhaled Oxygen | - | - | | | Concentration | | | | + + + + + | Weight | 119.3 kg (263 lb) | 01/16/2013 9:30 AM | | | | | PDT | | + + + + + | Height | - | - | | + + + + + | Body Mass Index | 35.92 | 07/07/2010 12:00 AM | | | | | PST | | + + + + + documented in this encounter Patient Instructions Patient Instructions Lorena Aldridge ARNP - 01/16/2013 9:46 AM PDTLOW-SALT DIET (2 gra ms/day) This diet eliminates foods that are high in salt and restricts the amount of salt that you cook with. It is most often used for patients with high blood pressure, edema (fluid retenti on), kidney, liver, and heart disease. Table salt contains the mineral sodium. The body needs sodium to work normally. But too muc h sodium can make your health problems worse. Your healthcare provider is recommending a low -salt (also called low-sodium) diet for you. Your total daily allowance of salt (sodium) is 2 grams. This equals 2,000 milligrams (mg). It is less than 1 teaspoon of table salt. This m eans you can have only about 700 mg of sodium at each meal. When you cook, limit the salt you use. And if you can avoid using salt, even better. Do not add salt at the table. So, throw away the saltshaker! When shopping, read the package labels. Salt is often called sodium on the label. Cho ose foods that are Salt-Free, Low Salt, or Very Low Salt. Note that foods with Reduced Salt may notlower your salt intake enough. BEVERAGES OK: Tea, coffee, carbonated beverages, juices AVOID: Flavored international coffees, electrolyte replacement drinks, sports beverages BREAD & CEREALS OK: All regular bread, rolls, cereals, cakes; low-salt crackers, matzoh crackers AVOID: Salted crackers, pretzels, popcorn; lithuanian toast, pancakes, muffins FRUITS & DESSERTS OK: Ice cream, frozen yogurt, juice bars, gelatin (Jell-O), cookies and pies, sugar, honey, jelly, hard candy AVOID: Most pies, cakes and cookies prepared or processed with salt, instant pudding MEATS OK: All fresh meat, fish, poultry, low-salt tuna AVOID: Smoked, pickled, brine-cured, or salted meats or fish. Thisincludes norton, chipped beef, corned beef, hot dogs, luncheon meats, ham, kosher meats, salt pork, sausage, canned tuna, salted codfish, smokedsalmon, alfaro, sardines, or anchovies. DAIRY OK: Milk, chocolate milk, hot chocolate mix; eggs, Low Salt cheeses, yogurt, egg subs titute AVOID: Processed cheese, cheese spreads, Roquefort, Camembert, and cottage cheese, buttermi lk, instant breakfast drink BEANS, POTATOES & PASTA OK: Dry beans, split peas, lentils, potatoes, rice, macaroni, noodles, spaghetti without ad ded salt AVOID: Potato chips, tortilla chips, and similar products SOUPS OK: Low-salt soups and broths made with allowed foods AVOID: Bouillon cubes, soups with smoked or salted meats, regular soup and broth VEGETABLES OK: Most are okay; low-salt tomato and vegetable juices AVOID: Sauerkraut and other brine-soaked vegetables, pickles and other pickled vegetables, tomato juice, olives SEASONING & SPICES OK: Most seasonings are okay. Good substitutes for salt include: fresh herb blends, Tabasco , lemon, garlic, ko, vinegar, dry mustard, parsley, cilantro, horseradish, tomato paste, regular margarine, mayonnaise, butter, cream cheese, vegetable oil, cream, low-salt salad dr ryan and jose g AVOID: Regular ketchup, relishes, pickles, soy sauce, teriyaki sauce, Worcestershire sauce, BBQ sauce, tartar sauce, meat tenderizer, chili sauce, regular gravy, regular salad dressin g [id number] [facility], [address] [place] [address]. All rights reserve d. This information is not intended as a substitute for professional medical care. Always fo llow your healthcare professional's instructions. documented in this encounter Progress Notes Lorena Aldridge ARNP - 01/16/2013 9:43 AM PDTFormatting of this note might be differen t from the original. Subjective: Talha Ramos is a 72 y.o. male patient of Lorena Aldridge [facility]. Chief Complaint: Medication Management and Hypertension Here for 6 month follow-up of chronic health problems Hypertension: Control and Compliance Low Sodium Diet: yes Medication compliance: good Home Blood Pressures: 130's/70's. occaisonally 1140 systolic BP: 134/72 mmHg Pt denies: No headache, visual symptoms, neurologic problems, syncope No chest pain, palpitations, peripheral edema No side effects from any antihypertensive medications HYPERLIPIDEMIA: Diet: Low fat, low carb dietary compliance: Denies side effects of medications No evidence of medication toxicity Denies chest pain, shortness of breath Denies Myalgias, abdominal pain, jaundice, constipation. Impaired fasting glucose: No diagnosis found. No Known Allergies Medications: He has a current medication list which includes the following prescription(s): amlodipine, aspirin, atorvastatin, calcium carbonate antacid, vitamin d3, hydrochlorothiazide, lisinopri l, a thru z advanced, nifedipine, zantac, detrol la, and trospium. Past Medical History He has [...] He reports that he quit smoking about 26 years ago. He does not have any smokeless tobacco history on file. He reports that he drinks alcohol. He reports that he does not use illicit drugs. Review of Systems Pertinent items are noted in HPI. Objective: BP 134/72 | Pulse 82 | Temp 36.8 C (98.2 F) (Temporal) | Resp 16 | Wt 119.296 kg (263 l b) | SpO2 96% General Appearance: Alert, cooperative, no distress, appears stated age Head: Normocephalic, without obvious abnormality, atraumatic Eyes: PERRL, conjunctiva/corneas clear, Ears: Normal TM's and external ear canals, and acuity Nose: Nares normal Throat: Lips, mucosa, and tongue normal; teeth and gums normal. Posterior pharynx normal Neck: Supple, symmetrical, no adenopathy, thyroid: not enlarged, symmetric, no tenderness/m ass/nodules, no carotid bruit or JVD Lungs: Clear to auscultation bilaterally, respirations unlabored Heart: Regular rate and rhythm, S1, S2 normal, no murmur, rub or gallop Extremities: Extremities normal, atraumatic, no cyanosis or edema Skin: Skin color, texture, turgor normal, no rashes Neurologic: Nonfocal. Alert and oriented x3 No results found for this or any previous visit. Assessment and Plans: Talha was seen today for medication management and hypertension. Diagnoses and associated orders for this visit: Hypertension, essential, controlled -. Blood pressure stable and goals discussed -. Continue current medications - Advised low salt diet - Advised regular cardiovascular exercise -. Labs ordered and will notify patient - Follow up as needed if blood pressures are above goal - amLODIPine (NORVASC) 5 mg tablet; Take 1 tablet by mouth Daily refilled for 6 months Hyperlipidemia -. Take meds as directed -. Discussed regular cardiovascular exercise and maintaining healthy wt. -. Avoid high fat/cholesterol diet -. Lipid panel and LFT's ordered - atorvaSTATin (LIPITOR) 20 mg tablet; Take 0.5 tablets by mouth Daily. 10 mg by mouth eyad y Impaired fasting glucose; encouraged exercise and will check A1C Other Orders - aspirin 81 mg EC tablet; Take 81 mg by mouth Daily. - trospium (SANCTURA) 20 MG tablet; Take 20 mg by mouth 2 times daily. Care instructions and warning signs were discussed. Medications per orders. Side effects discussed. Labs and investigations per orders. Recheck 3 months. Sooner prn. documented in th is encounter Plan of Treatment Not on filedocumented as of this encounter Visit Diagnoses + + | Diagnosis | + + | HYPERTENSION, ESSENTIAL, CONTROLLED - Primary Unspecified essential hypertension | + + | Hyperlipidemia Other and unspecified hyperlipidemia | + + | Impaired fasting glucose | + + documented in this encounter"
--- OUTSIDE RECORDS SUMMARY | ~2020-05-02 | XMS | Encounter Summary ---
Demographics + + + | Address | [address] | | | [place] [address] | + + + | Home Phone | | + + + | Preferred Language | Unknown | + + + | Marital Status | | + + + | Yazidi Affiliation | Unknown | + + + | Race | White | + + + | Ethnic Group | Not or | + + + Author + + + | Author | [facility] | | | and [place] | + + + | Organization | [facility] | | | [...] Team Providers + +------+ + | Care Research Center Director Name | Role | Phone | + [...] + | 08/14/ | Refill | [facility] | Lorena Aldridge | Medication Refill | | 2012 | | MEDICINE [place] | L, [facility] NURSE [address] | | | | | [address] | [place] | | | | | [place] | [address] | | | | | [address] | | | | | | [phone] | | | +--------+--------+ + + + [...]
--- OUTSIDE RECORDS SUMMARY | ~2020-05-02 | XMS | Encounter Summary ---
Demographics + + + | Address | [address] | | | [place] [address] | + + + | Home Phone | | + + + | Preferred Language | Unknown | + + + | Marital Status | | + + + | Sikh Affiliation | Unknown | + + + | Race | White | + + + | Ethnic Group | Not or | + + + Author + + + | Author | [facility] | | | and [place] | + + + | Organization | [facility] | | | and [...] Team Providers + +------+ + | Care College Or University Business Manager Name | Role | Phone | + +------+ + PCP | Unavailable | + +------+ + Encounter Details +--------+ + + + + | Date | Type | Department | Care Team | Description | +--------+ + + + + | 03/20/ | Hospital | [facility] | | | | 1999 | Encounter | MED CTR GENERIC OP | | | | | | CONV DEPT [address] | | | | | | [place], | | | | | | [place] [address] | | | | | | [phone] | | | +--------+ + + + [...]
--- OUTSIDE RECORDS SUMMARY | ~2020-05-02 | XMS | Encounter Summary ---
Demographics + + + | Address | [address] | | | [place] [address] | + + + | Home Phone | | + + + | Preferred Language | Unknown | + + + | Marital Status | | + + + | Restorationist Affiliation | Unknown | + + + | Race | White | + + + | Ethnic Group | Not or | + + + Author + + + | Author | [facility] | | | and [place] | + + + | Organization | [facility] | | [...] Team Providers + +------+ + | Care Roofer Applicator Name | Role | Phone | + [...] + + | 07/18/ | Office | [facility] | Lorena Aldridge | HYPERTENSION, | | 2011 | [facility] | [place], [place] [address] | [place], | | | | [address] | [address] [place] | [place]ED (Primary | | | | [place], [place] | [address] | Dx); Hyperlipidemia; | | | | [address] | | Impaired fasting | | | | [phone] | | glucose; Prostate | | | [...] fasting labs and has orders already at [facility]. Review of Systems Denies Myalgias, abdominal pain, [...] will send report to his urologist in [facility] 5. Needs flu shot Immunization counseling [...]
--- OUTSIDE RECORDS SUMMARY | ~2020-05-02 | XMS | Clinical Summary ---
Demographics + + + | Address | [address] | | | [place] [address] | + + + | Home Phone | | + + + | Preferred Language | Unknown | + + + | Marital Status | | + + + | Sabianist Affiliation | Unknown | + + + | Race | White | + + + | Ethnic Group | Not or | + + + Author + + + | Author | [facility] | | | and [place] | + + + | Organization | [facility] | | [...] Team Providers + +------+ + | Care Bessemer Converter Blower Name | Role | Phone | + +------+ + | Jennifer Herrera PA-C | PCP | | + +------+ + Allergies No Known Allergies Medications + + + +---------+------+------+-------+ | Medication | Sig | Dispensed | Refills | Star | End | Statu | | | | | | t | Date | s | | | | | | Date | | | + + + +---------+------+------+-------+ | Cholecalciferol | Take 2,000 Units by | | 0 | 06/1 | | Activ | | (VITAMIN D3) 2000 | mouth Daily. | | | 01/09 | | e | | UNITS CAPS | | | | 10 | | | + + + +---------+------+------+-------+ | Multiple | one tablet by mouth | | 0 | 12/21 | | Activ | | Vitamins-Minerals (A | daily | | | 01/09 | | e | | THRU Z NATHAN) | | | | 10 | | | | TABS | | | | | | | + + + +---------+------+------+-------+ | ranitidine | Take 150 mg by mouth | | 0 | 12/21 | | Activ | | (ZANTAC) 150 MG | every evening. | | | 01/09 | | e | | capsule | | | | 10 | | | + + + +---------+------+------+-------+ | Calcium Carbonate | CAPS two tablets by | | 0 | 12/21 | | Activ | | Antacid | mouth in the pm | | | 01/09 | | e | | (MARIA ALEJANDRA | | | | 10 | | | | ANTACID PO) | | | | | | | + + + +---------+------+------+-------+ | aspirin 81 mg EC | Take 81 mg by mouth | | 0 | | | Activ | | tablet | Daily. | | | | | e | + + + +---------+------+------+-------+ | amLODIPine | Take 1 tablet by | 90 | 3 | 12/3 | | Activ | | (NORVASC) 5 mg | mouth Daily. | tablet | | 0/20 | | e | | tabletIndications: | | | | 13 | | | | Unspecified | | | | | | | | essential | | | | | | | | hypertension | | | | | | | + + + +---------+------+------+-------+ | | Take 1 tablet by | 90 | 3 | 12/3 | | Activ | | hydrochlorothiazide | mouth every morning. | tablet | | 0/20 | | e | | 25 mg | | | | 13 | | | | tabletIndications: | | | | | | | | Unspecified | | | | | | | | essential | | | | | | | | hypertension | | | | | | | + + + +---------+------+------+-------+ | lisinopril | Take 1 tablet by | 180 | 3 | 12/3 | | Activ | | (PRINIVIL,ZESTRIL) | mouth 2 times daily. | tablet | | 0/20 | | e | | 40 MG | | | | 13 | | | | tabletIndications: | | | | | | | | Unspecified | | | | | | | | essential | | | | | | | | hypertension | | | | | | | + + + +---------+------+------+-------+ | NIFEdipine | Take 1 tablet by | 180 | 3 | 12/3 | | Activ | | (PROCARDIA XL) 60 mg | mouth Daily. | tablet | | 0/20 | | e | | ER | | | | 13 | | | | tabletIndications: | | | | | | | | Unspecified | | | | | | | | essential | | | | | | | | hypertension | | | | | | | + + + +---------+------+------+-------+ | atorvaSTATin | Take 0.5 tablets by | 45 | 3 | 12/3 | | Activ | | (LIPITOR) 20 mg | mouth Daily. 10 mg | tablet | | 0/20 | | e | | tabletIndications: | by mouth daily | | | 13 | | | | Hyperlipidemia | | | | | | | + + + +---------+------+------+-------+ Active Problems + + + | Problem | Noted Date | + + + | Alcohol abuse | 01/19/2014 | + + + | Routine general medical examination at a health care facility | 07/18/2012 | + + + + + | Overview: Tetanus vaccine: Td (07/07/2010) | | Influenza vaccine: Apr 2013 | | Pneumovax: Pneumovax (07/07/2010) | | | | No colonoscopy (will never have one) | | Prostate: every July | | | | Occupation: Retired | | Marital Status: , Kaye | | Children: 3 | | Exercise: Walk | | Sunscreen: No | | Caffeine: Yes, pot of coffee daily | | Seatbelt Use: Yes 100% | + + + + + | EPISTAXIS, RECURRENT | 07/06/2011 | + + + | 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 | + + + | IMPAIRED FASTING GLUCOSE | 07/07/2010 | + + + | HYPERLIPIDEMIA | | + + + | DEPENDENT EDEMA | | + + + | VITAMIN D DEFICIENCY | | + + + | GERD | | + + + | HYPERTENSION, ESSENTIAL, CONTROLLED | | + + + + + | Overview: ICD-10 Record update | + + Immunizations + + + + | Name | Administration Dates | Next Due | + + + + | INFLUENZA PF 18 Y OR | 07/18/2012 | | | >,TRIVALENT | | | | RECOMBINANT | | | + + + + | INFLUENZA TRIV | 05/06/2013 | | | W/PRES(PED/ADOL/ADUL | | | | T),MULTIDOSE | | | + + + + | PNEUMOCOCCAL | 07/07/2010 | | | POLYSACCHARIDE | | | | 23-VALENT (PPSV23) | | | + + + + | TD PF (2 LF TETANUS) | 07/07/2010 | | | (ADOL/ADULT) | | | + + + + Family History + + +------+ + | Medical History | Relation | Name | Comments | + + +------+ + | Heart attack | Father | | | + + +------+ + | Heart disease | Father | | | + + +------+ + | High blood pressure | Father | | | + + +------+ + | Alzheimer's disease | Mother | | | + + +------+ + + +------+ + + | Relation | Name | Status | Comments | + +------+ + + | Father | | | | | | | (Age | | | | | 91) | | + +------+ + + | Mother | | | | | | | (Age | | | | | 85) | | + +------+ + + Social History + +-------+ +--------+ [...] +---------+ + | Yes | | | 4-5 beers per day | + + +---------+ + + + + | Sex Assigned at | Date Recorded | | | | + + + | Not on file | | + + + Last Filed Vital Signs + + + + + | Vital Sign | Reading | Time Taken | Comments | + + + + + | Blood Pressure | 128/80 | 01/19/2014 7:42 AM | | | | | PDT | | + + + + + | Pulse | 66 | 01/19/2014 7:42 AM | | | | | PDT | | + + + + + | Temperature | 36.4 C (97.5 F) | 01/19/2014 7:42 AM | | | | | PDT | | + + + + + | Respiratory Rate | 16 | 01/19/2014 7:42 AM | | | | | PDT | | + + + + + | Oxygen Saturation | 96% | 01/19/2014 7:42 AM | | | | | PDT | | + + + + + | Inhaled Oxygen | - | - | | | Concentration | | | | + + + + + | Weight | 123.4 kg (272 lb) | 01/19/2014 7:42 AM | | | | | PDT | | + + + + + | Height | 185.4 cm (6' 1") | 01/19/2014 7:42 AM | | | | | PDT | | + + + + + | Body Mass Index | 35.89 | 01/19/2014 7:42 AM | | | | | PDT | | + + + + + Plan of Treatment + + + + + | Health Maintenance | Due Date | Last | Comments | | | | Done | | + + + + + | Vaccine: | | 07/07/20 | | | Dtap/Tdap/Td (1 - | 2 | 10 | | | Tdap) | | | | + + + + + | Vaccine: Zoster (1 | | | | | of 2) | 3 | | | + + + + + | Vaccine: Influenza | | 05/06/20 | | | (#1) | 0 | 13, | | | | | 07/18/20 | | | | | 12 | | + + + + + | Vaccine: | Completed | 07/07/20 | | | Pneumococcal 65+ | | 10 | | + + + + + Results Not on filefrom Last 3 Months Insurance + +--------+ +--------+ + +--------+ | Payer | Benefi | Subscriber | Effect | Phone | Address | Type | | | t Plan | ID | felipe | | | | | | / | | Dates | | | | | | Group | | | | | | + +--------+ +--------+ + +--------+ | MEDICARE | MEDICA | [id number] | 10/22/19 | [phone] | | Medica | | | RE | | 08-Pre | 5 | | re | | | PART A | | sent | | | | | | AND B | | | | | | + +--------+ +--------+ + +--------+ | MODA | MODA | [id number] | 02/21/20 | [phone] | [address] | Indemn | | | HEALTH | | 12-Pre | 9 | [id number] | ity | | | MDCR | | sent | | [place], | | | | [place] | | | | [place] [address] | | + +--------+ +--------+ + +--------+ + +--------+ +--------+ + + | Guarantor Name | Accoun | Relation to | Date | Phone | Billing Address | | | t Type | Patient | of | | | | | | | | | | + +--------+ +--------+ + + | Talha Ramos | Person | Self [birth year] | [address] | | | al/Fam | | 1941 | [phone] | [place] [address] | | | love | | | 9 (Home) | | + +--------+ +--------+ + + Advance Directives + + + + + | Type | Date Recorded | Patient | Explanation | | | | Sprinkler Installer | | + + + + + | Power of | | | | | Admissions Supervisor | | | | + + + + + | Advance | | | | | Directive | | | | + + + + +
--- OUTSIDE RECORDS SUMMARY | ~2020-05-02 | XMS | Encounter Summary ---
Demographics + + + | Address | [address] | | | [place] [address] | + + + | Home Phone | | + + + | Preferred Language | Unknown | + + + | Marital Status | | + + + | Orthodox Affiliation | Unknown | + + + | Race | White | + + + | Ethnic Group | Not or | + + + Author + + + | Author | [facility] | | | and [place] | + + + | Organization | [facility] | | | [...] Team Providers + +------+ + | Care Fishing Accessories Maker Name | Role | Phone | + +------+ + | Lorena Aldridge | PCP | | + +------+ + Encounter Details +--------+ + + + + | Date | Type | Department | Care Team | Description | +--------+ + + + + | 02/17/ | Abstract | [facility] | Lorena Aldridge | | | 2013 | | [place] [address] | | | | | [address] | [place] | | | | | [place] | [id number] | | | | | [address] | | | | | | [phone] | | | +--------+ + + + [...] Not on filedocumented as of this encounter Procedures + +--------+ + + + | Procedure Name | Priori | Date/Time | Associated Diagnosis | Comments | | | ty | | | | + +--------+ + + + | EXTERNAL LAB: | Routin | 01/28/2014 | | Results for this | | CHOLESTEROL, NON HDL | e | 7:05 AM | | procedure are in the | | LP | | PDT | | results section. | + +--------+ + + + | EXTERNAL LAB: | Routin | 01/28/2014 | | Results for this | | TRIGLYCERIDES | e | 7:05 AM | | procedure are in the | | | | PDT | | results section. | + +--------+ + + + | EXTERNAL LAB: | Routin | 01/28/2014 | | Results for this | | CHOLESTEROL, HDL | e | 7:05 AM | | procedure are in the | | | | PDT | | results section. | + +--------+ + + + | EXTERNAL LAB: | Routin | 01/28/2014 | | Results for this | | CHOLESTEROL, TOTAL | e | 7:05 AM | | procedure are in the | | | | PDT | | results section. | + +--------+ + + + | EXTERNAL LAB: | Routin | 01/28/2014 | | Results for this | | CHOLESTEROL, LDL | e | 7:05 AM | | procedure are in the | | | | PDT | | results section. | + +--------+ + + + | EXTERNAL LAB: EGFR | Routin | 01/28/2014 | | Results for this | | | e | 7:05 AM | | procedure are in the | | | | PDT | | results section. | + +--------+ + + + | EXTERNAL LAB: | Routin | 01/28/2014 | | Results for this | | CREATININE | e | 7:05 AM | | procedure are in the | | | | PDT | | results section. | + +--------+ + + + | LIPID PANEL | Routin | 01/28/2014 | | Results for this | | | e | 7:05 AM | | procedure are in the | | | | PDT | | results section. | + +--------+ + + + | URINALYSIS, REFLEX | Routin | 01/28/2014 | | Results for this | | MICROSCOPIC AND/OR | e | 7:05 AM | | procedure are in the | | CULTURE | | PDT | | results section. | + +--------+ + + + | COMPREHENSIVE | Routin | 01/28/2014 | | Results for this | | METABOLIC PANEL | e | 7:05 AM | | procedure are in the | | | | PDT | | results section. | + +--------+ + + + documented in this encounter Results Urinalysis, Reflex Microscopic and/or Culture (01/28/2014 7:05 AM PDT) + + + + + + | Component | Value | Ref Range | Performed | Pathologist | | | | | At | Signature | + + + + + + | COLLECTION | clean catch | | [facility] | | | [facility] | | | [facility] | | | | | | [facility] | | | | | [facility] - | | | | | | LABORATORY | | + + + + + + | Color | straw | | [facility] | | | | | | [facility] | | | | | | [facility] | | | | | | [facility] - | | | | | | LABORATORY | | + + + + + + | Clarity, | Clear | | [facility] | | | Urine | | | [facility] | | | | | | [facility] | | | | | | [facility] - | | | | | | LABORATORY | | + + + + + + | Specific | 1.015 | 1.005 - 1.030 | [facility] | | | [place], | | | [facility] | | | Urine | | | MEDICAL | | | | | | CENTER - | | | | | | LABORATORY | | + + + + + + | pH, Urine | 8.0 | 5.0 - 9.0 | [facility] | | | | | | [facility] | | | | | | [facility] | | | | | | [facility] - | | | | | | LABORATORY | | + + + + + + | Glucose, | Normal | | [facility] | | | Urine | | | [facility] | | | | | | [facility] | | | | | | [facility] - | | | | | | LABORATORY | | + + + + + + | Protein, | Negative | | [facility] | | | Urine | | | [facility] | | | | | | [facility] | | | | | | [facility] - | | | | | | LABORATORY | | + + + + + + | Ketones, | Negative | | [facility] | | | Urine | | | [facility] | | | | | | [facility] | | | | | | [facility] - | | | | | | LABORATORY | | + + + + + + | Blood, | Negative | | [facility] | | | Urine | | | [facility] | | | | | | [facility] | | | | | | [facility] - | | | | | | LABORATORY | | + + + + + + | Bilirubin, | Negative | | [facility] | | | Urine | | | [facility] | | | | | | [facility] | | | | | | [facility] - | | | | | | LABORATORY | | + + + + + + | Nitrite, | Negative | Negative, Test | [facility] | | | Urine | | not performed | [facility] | | | | | | MEDICAL | | | | | | CENTER - | | | | | | LABORATORY | | + + + + + + | Urobilinoge | Normal | | [facility] | | | n, Urine | | | [facility] | | | | | | [facility] | | | | | | CENTER - | | | | | | LABORATORY | | + + + + + + | Leukocyte | Negative | | [facility] | | | Esterase, | | | [facility] | | | Urine | | | MEDICAL | | | | | | CENTER - | | | | | | LABORATORY | | + + + + + + | White Blood | 0-2 | 0 - 2 /HPF | [facility] | | | Cells, | | | [facility] | | | Urine | | | MEDICAL | | | | | | CENTER - | | | | | | LABORATORY | | + + + + + + | Red Blood | 0-2 | 0 - 2 /HPF | [facility] | | | Cells, | | | [facility] | | | Urine | | | MEDICAL | | | | | | CENTER - | | | | | | LABORATORY | | + + + + + + | Bacteria, | Negative | Negative /HPF | [facility] | | | Urine | | | [facility] | | | | | | [facility]ICAL | | | | | | CENTER - | | | | | | LABORATORY | | + + + + + + | Epithelial | 0-2 | 0 - 2 /LPF | [facility] | | | Casts, | | | [facility] | | | Urine | | | MEDICAL | | | | | | CENTER - | | | | | | LABORATORY | | + + + + + + + + | Specimen | + + | Urine specimen | | (specimen) | + + + + + + + | Performing | Address | City/State/Zipcode | Phone Number | | Organization | | | | + + + + + | [facility] | [address] | [place] | [phone] | | [facility] | | [address] | | | - LABORATORY | | | | + + + + + | [facility] | [address] | [place] | | | [facility] | | [address], [facility] | | | - LABORATORY | | | | + + + + + Comprehensive Metabolic Panel (01/28/2014 7:05 AM PDT) + +-------+ + + + | Component | Value | Ref Range | Performed | Pathologist | | | | | At | Signature | + +-------+ + + + | Na | 138 | 132 - 143 | [facility] | | | | | mmol/L | [facility] | [facility] | [facility] | | | | | | [facility] - | | | | | | LABORATORY | | + +-------+ + + + | K | 4.4 | 3.6 - 5.1 | [facility] | | | | | mmol/L | [facility] | | | | | | MEDICAL | | | | | | CENTER - | | | | | | LABORATORY | | + +-------+ + + + | Chloride | 102 | 95 - 112 | [facility] | | | | | | [facility] | | | | | | [facility] | | | | | | CENTER - | | | | | | LABORATORY | | + +-------+ + + + | CO2 | 24 | 19 - 31 mmol/L | [facility] | | | | | | [facility] | | | | | | MEDICAL | | | | | | CENTER - | | | | | | LABORATORY | | + +-------+ + + + | Anion Gap | 16 | 7 - 21 mmol/L | [facility] | | | | | [facility] | | [facility] | [facility] | | | | | | [facility] - | | | | | | LAB[facility]ATORY | | + +-------+ + + + | Glucose | 100 | 70 - 100 mg/dL | [facility] | | | | | | [facility] | | | | | | [facility] | | | | | | CENTER - | | | | | | LABORATORY | | + +-------+ + + + | BUN | 11 | 6 - 23 mg/dL | [facility] | | | | | | [facility] | | | [facility] | | [facility] | | | | | | C[facility] - | | | | | | LABORATORY | | + +-------+ + + + | Bun/Creatin | 12.6 | 6.0 - 28.6 | [facility] | | | ine | | | [facility] | | | | | | [facility] | | | | | | CENTER - | | | | | | LABORATORY | | + +-------+ + + + | Calcium | 9.1 | 8.4 - 10.2 | [facility] | | | | | mg/dL | [facility] | | | | | | [facility] | | | | | | CENTER - | | | | | | LABORATORY | | + +-------+ + + + | Total | 6.5 | 6.0 - 8.0 g/dL | [facility] | | | Protein | | | [facility] | | | | | | [facility] | | | | | | CENTER - | | | | | | LABORATORY | | + +-------+ + + + | Bilirubin | 0.7 | 0.0 - 1.2 mg/dL | [facility] | | | Total | | | [facility] | | | | | | [facility] | | | | | | CENTER - | | | | | | LABORATORY | | + +-------+ + + + | Albumin | 4.3 | 3.5 - 5.0 g/dL | [facility] | | | | | | [facility] | | | | | | [facility] | | | | | | [facility] - | | | | | | LABORATORY | | + +-------+ + + + | Globulin | 2.2 | 1.8 - 3.5 | [facility] | | | | | | [facility] | | | | | | [facility] | | | | | | [facility] - | | | | | | LABORATORY | | + +-------+ + + + | Albumin/Honey | 2.0 | 1.1 - 2.4 | [facility] | | | bulin Ratio | | | [facility] | | | | | | MED[facility] | | | | | | CENTER - | | | | | | LABORATORY | | + +-------+ + + + | Alkaline | 62 | 30 - 128 U/L | [facility] | | | Phosphatase | | | [facility] | | | | | | [facility] | | | | | | CENTER - | | | | | | LABORATORY | | + +-------+ + + + | ALT | 19 | 7 - 52 U/L | [facility] | | | | | | [facility] | | | | | | MED[facility] | | | | | | CENTER - | | | | | | LABORATORY | | + +-------+ + + + | AST | 18 | 13 - 39 U/L | [facility] | | | | | | [facility] | | [facility] | | | [facility] | | | | | | CENTER - | | | | | | LABORATORY | | + +-------+ + + + + + | Specimen | + + | Blood specimen | | (specimen) | + + + + + + + | Performing | Address | City/State/Zipcode | Phone Number | | Organization | | | | + + + + + | [facility] | [address] | [place] | [phone] | | [facility] | | [address] | | | - LABORATORY | | | | + + + + + | [facility] | [address] | [place], [place] | | | [facility] | | [address], [facility] | | | - LABORATORY | | | | + + + + + External Lab: eGFR (01/28/2014 7:05 AM PDT) + +-------+ + + + | Component | Value | Ref Range | Performed | Pathologist | | | | | At | Signature | + +-------+ + + + | eGFR, | 87 | | EXTERNAL | | | External | | | LAB | | + +-------+ + + + | eGFR, | | | EXTERNAL | | | | | | LAB | | | [place], | | | | | | External | | | | | + +-------+ + + + + + | Specimen | + + | Blood specimen | | (specimen) | + + + + | Resulting Agency Comment | + + | [facility] | + + + +---------+ + + | Performing | Address | City/State/Zipcode | Phone Number | | Organization | | | | + +---------+ + + | EXTERNAL LAB | | | | + +---------+ + + External Lab: Creatinine (01/28/2014 7:05 AM PDT) + +-------+ + + + | Component | Value | Ref Range | Performed | Pathologist | | | | | At | Signature | + +-------+ + + + | Creatinine, | 0.87 | | EXTERNAL | | | External | | | LAB | | + +-------+ + + + + + | Specimen | + + | Blood specimen | | (specimen) | + + + + | Resulting Agency Comment | + + | [facility] | + + + +---------+ + + | Performing | Address | City/State/Zipcode | Phone Number | | Organization | | | | + +---------+ + + | EXTERNAL LAB | | | | + +---------+ + + Lipid Panel (01/28/2014 7:05 AM PDT) + +-------+ + + + | Component | Value | Ref Range | Performed | Pathologist | | | | | At | Signature | + +-------+ + + + | Chol/HDL | 2.7 | | | | | Ratio | | | | | + +-------+ + + + | VLDL | 18 | | | | | Cholesterol | | | | | | Claus | | | | | + +-------+ + + + + + | Specimen | + + | Blood specimen | | (specimen) | + + External Lab: Cholesterol, Non HDL LP (01/28/2014 7:05 AM PDT) + +-------+ + + + | Component | Value | Ref Range | Performed | Pathologist | | | | | At | Signature | + +-------+ + + + | Cholesterol | 95 | | EXTERNAL | | | , Total, | | | LAB | | | Non HDL-C | | | | | | (LDL+VLDL), | | | | | | External | | | | | + +-------+ + + + + + | Specimen | + + | Blood specimen | | (specimen) | + + + + | Resulting Agency Comment | + + | [facility] | + + + +---------+ + + | Performing | Address | City/State/Zipcode | Phone Number | | Organization | | | | + +---------+ + + | EXTERNAL LAB | | | | + +---------+ + + External Lab: Triglycerides (01/28/2014 7:05 AM PDT) + +-------+ + + + | Component | Value | Ref Range | Performed | Pathologist | | | | | At | Signature | + +-------+ + + + | Triglycerid | 91 | | EXTERNAL | | | es, | | | LAB | | | External | | | | | + +-------+ + + + + + | Specimen | + + | Blood specimen | | (specimen) | + + + + | Resulting Agency Comment | + + | [facility] | + + + +---------+ + + | Performing | Address | City/State/Zipcode | Phone Number | | Organization | | | | + +---------+ + + | EXTERNAL LAB | | | | + +---------+ + + External Lab: Cholesterol, HDL (01/28/2014 7:05 AM PDT) + +-------+ + + + | Component | Value | Ref Range | Performed | Pathologist | | | | | At | Signature | + +-------+ + + + | HDL | 57.2 | | EXTERNAL | | | Cholesterol | | | LAB | | | , External | | | | | + +-------+ + + + + + | Specimen | + + | Blood specimen | | (specimen) | + + + + | Resulting Agency Comment | + + | [facility] | + + + +---------+ + + | Performing | Address | City/State/Zipcode | Phone Number | | Organization | | | | + +---------+ + + | EXTERNAL LAB | | | | + +---------+ + + External Lab: Cholesterol, Total (01/28/2014 7:05 AM PDT) + +-------+ + + + | Component | Value | Ref Range | Performed | Pathologist | | | | | At | Signature | + +-------+ + + + | Cholesterol | 152 | | EXTERNAL | | | , Total, | | | LAB | | | External | | | | | + +-------+ + + + + + | Specimen | + + | Blood specimen | | (specimen) | + + + + | Resulting Agency Comment | + + | [facility] | + + + +---------+ + + | Performing | Address | City/State/Zipcode | Phone Number | | Organization | | | | + +---------+ + + | EXTERNAL LAB | | | | + +---------+ + + External Lab: Cholesterol, LDL (01/28/2014 7:05 AM PDT) + +-------+ + + + | Component | Value | Ref Range | Performed | Pathologist | | | | | At | Signature | + +-------+ + + + | LDL | 77 | | EXTERNAL | | | Cholesterol | | | LAB | | | , Direct, | | | | | | External | | | | | + +-------+ + + + + + | Specimen | + + | Blood specimen | | (specimen) | + + + + | Resulting Agency Comment | + + | [facility] | + + + +---------+ + + | Performing | Address | City/State/Zipcode | Phone Number | | Organization | | | | + +---------+ + + | EXTERNAL LAB | | | | + +---------+ + + documented in this encounter Visit Diagnoses Not on filedocumented in this encounter"
--- OUTSIDE RECORDS SUMMARY | ~2020-05-02 | XMS | Encounter Summary ---
Demographics + + + | Address | [address] | | | [place] [address] | + + + | Home Phone | | + + + | Preferred Language | Unknown | + + + | Marital Status | | + + + | Druze Affiliation | Unknown | + + + | Race | White | + + + | Ethnic Group | Not or | + + + Author + + + | Author | [facility] | | | and [place] | + + + | Organization | [facility] | | [...] Team Providers + +------+ + | Care Metal Spray Operator Name | Role | Phone | + [...] Description | +--------+---------+ + + + | 01/19/ | Office | [facility] | Lorena Aldridge | HYPERTENSION, | | 2013 | Visit | [facility] | Roberta, KRISHNA [address] | ESSENTIAL, | | | | [address] | [place] [place] [facility] [place] | CONTROLLED (Primary | | | | [place], [place] | [address] | Dx); Hyperlipidemia; | | | | [address] | | Alcohol abuse | | | | [phone] | | | +--------+---------+ + + + Social History [...] + documented in this encounter Progress Notes Aldridge, Lorena L, KRISHNA - 01/19/2014 8:22 AM PDTFormatting of this note might be differen t from the original. Subjective: Talha Ramos is a 73 y.o. male patient of Lorena Aldridge. Chief Complaint: Hypertension and Hyperlipidemia here for six-month followup regarding his hypertension and hyperlipidemia. He has labs do ne at [facility] and has not had those done yet. He needs those ordered. Hypertension: Control and Compliance Low Sodium Diet: yes Medication compliance: good Home Blood Pressures: 120's/70's BP: 128/80 mmHg Pt denies: No headache, visual symptoms, neurologic problems, syncope No chest pain, palpitations, peripheral edema No side effects from any antihypertensive medications Down to 4-5 Beers a day. Was drinking 6-7 beers. HYPERLIPIDEMIA: Diet: Low fat, low carb dietary compliance: fair Denies side effects of medications No evidence of medication toxicity Denies Myalgias, abdominal pain, jaundice, constipation. No Known Allergies Medications: He has a current medication list which includes the following prescription(s): amlodipine, aspirin, atorvastatin, calcium carbonate antacid, vitamin d3, hydrochlorothiazide, lisinopri l, a thru z advanced, nifedipine, and zantac. Past Medical History He has a past medical history of Prostatism; Nocturia; Alcohol abuse; Obesity; Metabolic sy ndrome; Basal cell carcinoma; Actinic keratosis; Shoulder bursitis; and Glaucoma (1230-13). Past Surgical History He has past surgical [...] items are noted in HPI. Objective: BP 128/80 | Pulse 66 | Temp 36.4 C (97.5 F) (Temporal) | Resp 16 | Ht 1.854 m (6' 1") | Wt 123.378 kg (272 lb) | BMI 35.89 kg/m2 | SpO2 96% General Appearance: Alert, cooperative, no distress, appears stated age Head: Normocephalic, without obvious abnormality, atraumatic Eyes: PERRL, conjunctiva/corneas clear, EOM's intact, Ears: Normal TM's and external ear canals, and acuity Nose: Nares normal, septum midline, mucosa normal, no drainage or sinus tenderness Throat: Lips, mucosa, and tongue normal; teeth and gums normal Neck: Supple, symmetrical, no adenopathy, thyroid: not enlarged, symmetric, no tenderness/m ass/nodules, no carotid bruit or JVD Lungs: Clear to auscultation bilaterally, respirations unlabored Heart: Regular rate and rhythm, S1, S2 normal, no murmur, rub or gallop Abdomen: Soft, non-tender, normal bowel sounds, no masses, no organomegaly Extremities: Extremities normal, atraumatic, no cyanosis or edema Pulses: 2+ and symmetric Skin: Skin color, texture, turgor normal, no rashes or lesions Neurologic: Nonfocal. Alert and oriented.CN II-XII intact, Motor 5/5 throughout. Balance and gait normal. DTR's 2+ / symmetrical No results found for this or any previous visit. Assessment and Plans: Talha was seen today for hypertension and hyperlipidemia. Diagnoses and associated orders for this visit: Hypertension, essential, controlled -. Blood pressure stable and goals discussed -. Continue current medications - Advised low salt diet - Advised regular cardiovascular exercise -. Labs ordered - Follow up as needed if blood pressures are above goal meds refilled - Comprehensive Metabolic Panel; Future - Urinalysis with Microscopic with Culture if Indicated; Future Hyperlipidemia -. Take meds as directed -. Discussed regular cardiovascular exercise and maintaining healthy wt. -. Avoid high fat/cholesterol diet -. Lipid panel and LFT's f/u labs ordered - Comprehensive Metabolic Panel; Future - Lipid Panel; Future meds refilled. Alcohol abuse Health a discussion once again that he's drinking too much. He saw encouraged him to cut b ack on his alcohol intake as it will improve his blood pressure and was for cardiovascular d isease. Care instructions and warning signs were discussed. Medications per orders. Labs and investigations per orders. Recheck 6 month. Sooner prn. This note was dictated using Kromatid voice recognition software. Every attempt was made [...] | | e | ESSENTIAL, | starting 01/19/2014 | | | | | CONTROLLED | until 01/19/2015 | | | | | Hyperlipidemia | | + +------+--------+ + + | Lipid Panel | Lab | Routin | Hyperlipidemia | 1 Occurrences | | | | e | | starting 01/19/2014 | | | | | | until 01/19/2015 | + +------+--------+ + + | Urinalysis with | Lab | Routin | HYPERTENSION, | 1 Occurrences | | Microscopic with | | e | ESSENTIAL, | starting 01/19/2014 | | Culture if Indicated | | | CONTROLLED | until 01/19/2015 | + +------+--------+ + + documented as of this encounter Visit Diagnoses + + | Diagnosis | + + | HYPERTENSION, ESSENTIAL, CONTROLLED - Primary Unspecified essential hypertension | + + | Hyperlipidemia Other and unspecified hyperlipidemia | + + | Alcohol abuse Alcohol abuse, unspecified | + + documented in this encounter
--- OUTSIDE RECORDS SUMMARY | ~2020-05-02 | XMS | Encounter Summary ---
Demographics + + + | Address | [address] | | | [place] [address] | + + + | Home Phone | | + + + | Preferred Language | Unknown | + + + | Marital Status | | + + + | Yarsanism Affiliation | Unknown | + + + | Race | White | + + + | Ethnic Group | Not or | + + + Author + + + | Author | [facility] | | | and [place] [...] Team Providers + +------+ + | Care Director Client Services Name | Role | Phone | + +------+ + | Lorena Aldridge | PCP | | + +------+ + Encounter Details +--------+ + + + + | Date | Type | Department | Care Team | Description | +--------+ + + + + | 01/06/ | [facility] | [facility] | Lorena Aldridge | | | 2010 | Encounter | MED CTR LABORATORY | KRISHNA Granados [address] | | | | | [address] | [place] | | | | | [place] | [address] | | | | | [address] | | | | | | [phone] | | | +--------+ + + + [...] | 0 | 01/06/20 | | | [id number] | Daily. | | | 10 | [...]
--- OUTSIDE RECORDS SUMMARY | ~2020-05-02 | XMS | Encounter Summary ---
Demographics + + + | Address | [address] | | | [place] [address] | + + + | Home Phone | | + + + | Preferred Language | Unknown | + + + | Marital Status | | + + + | Yazdanism Affiliation | Unknown | + + + | Race | White | + + + | Ethnic Group | Not or | + + + Author + + + | Author | [facility] | | | and [place] | + + + | Organization | [facility] | | | [...] Team Providers + +------+ + | Care Salt Maker Name | Role | Phone | + +------+ + PCP | Unavailable | + +------+ + Encounter Details +--------+ + + + + | Date | Type | Department | Care Team | Description | +--------+ + + + + | 06/15/ | Hospital | [facility] | Lorena Aldridge | | | 2007 | Encounter | MED CTR XRAY [address] | L, COUNSELOR SUPERVISOR [address] | | | | | [address] | [place] | | | | | [place] [address] | [address] | | | | | [phone] | | | +--------+ + + + [...]
--- OUTSIDE RECORDS SUMMARY | ~2020-05-02 | XMS | Encounter Summary ---
Demographics + + + | Address | [address] | | | [place] [address] | + + + | Home Phone | | + + + | Preferred Language | Unknown | + + + | Marital Status | | + + + | Yarsanism Affiliation | Unknown | + + + | Race | White | + + + | Ethnic Group | Not or | + + + Author + + + | Author | and [facility] | | | and [place] | + + + | Organization | and Services Small | | | and [...] Team Providers + +------+ + | Care Aids Social Worker Name | Role | Phone [...] + + | 07/21/ | Office | [facility] | Lorena Aldridge | HYPERTENSION, | | 2012 | Visit | [facility] | Roberta, KRISHNA [address] | ESSENTIAL, | | | | [address] | [place] | CONTROLLED (Primary | | | | [place], [place] | [address] | Dx); Hyperlipidemia; | | | | [address] | | Impaired fasting | | | | [phone] | | glucose; Screening | | | [...] documented in this encounter Progress Notes Lorena Aldridge, [facility] - 07/21/2013 7:30 AM PSTFormatting of this note might be differen t from the original. Subjective: Talha Ramos is a 72 y.o. male patient of Lorena Aldridge [facility]. Chief Complaint: Hypertension and Hyperlipidemia Here is [...] Orders for labs to be done at [facility] provided This note was dictated using Primo Round voice recognition software. Every attempt was made [...]
--- OUTSIDE RECORDS SUMMARY | ~2020-05-02 | XMS | Encounter Summary ---
Demographics + + + | Address | [address] | | | [place] [address] | + + + | Home Phone | | + + + | Preferred Language | Unknown | + + + | Marital Status | | + + + | Hindu Affiliation | Unknown | + + + | Race | White | + + + | Ethnic Group | Not or | + + + Author + + + | Author | [facility] | | | and [place] | + + + | Organization | [facility] | | | [...] Team Providers + +------+ + | Care Treatment Plant Operator Name | Role | Phone | [...] | 07/18/ | Telephone | [facility] | Lorena Aldridge | Other | | 2011 | | [facility] | L, ENTRY LEVEL [address] | | | | | [address] | [address] [place] | | | | | [place], [place] | [address] | | | | | [address] | | | | | | [phone] | | | +--------+ + + + [...] be temporary. One month supply sent to [facility] in [place]. Please let patient know.Electronically jake d by [...] supply called in to a local pharmacy, [facility] in [place], or if there is something else that Lorena suggests? He has 9 pills left. He can be reached at [phone]. Sully Gutierrez documented in this enco unter Plan of Treatment Not on filedocumented as of this encounter Visit Diagnoses + + | Diagnosis | + + | Hyperlipidemia - Primary Other and unspecified hyperlipidemia | + + documented in this encounter"
--- OUTSIDE RECORDS SUMMARY | ~2020-05-02 | XMS | Encounter Summary ---
Demographics + + + | Address | [address] | | | [place] [address] | + + + | Home Phone | | + + + | Preferred Language | Unknown | + + + | Marital Status | | + + + | Baptist Affiliation | Unknown | + + + | Race | White | + + + | Ethnic Group | Not or | + + + Author + + + | Author | [facility] | | | and [place] | + + + | Organization | [facility] | | | [...] Team Providers + +------+ + | Care Wealth Management Consultant Name | Role | Phone | + +------+ + | Lorena Aldridge | PCP | | + +------+ + Encounter Details +--------+ + + + + | Date | Type | Department | Care Team | Description | +--------+ + + + + | 07/04/ | Abstract | [facility] | Lorena Aldridge | | | 2011 | | KRISHNA SHARMA [address] | | | | | [address] | [place] | | | | | [place] | [id number] | | | | | [address] | | | | | | [phone] | | | +--------+ + + + [...]
--- OUTSIDE RECORDS SUMMARY | ~2020-05-02 | XMS | Encounter Summary ---
Demographics + + + | Address | [address] | | | [place] [address] | + + + | Home Phone | | + + + | Preferred Language | Unknown | + + + | Marital Status | | + + + | Taoism Affiliation | Unknown | + + + | Race | White | + + + | Ethnic Group | Not or | + + + Author + + + | Author | [facility] | | | and [place] | + + + | Organization | [facility] | | | and [...] Team Providers + +------+ + | Care Hydroelectric Plant Mechanical Engineer Name | Role | Phone | + [...] | SR | | | | | [address] | | | | | | [place], [place] | | | | | | [address] | | | | | | [phone] | | | +--------+ + + + [...]
--- OUTSIDE RECORDS SUMMARY | ~2020-05-02 | XMS | Encounter Summary ---
Demographics + + + | Address | [address] | | | [place] [address] | + + + | Home Phone [...] Author | [facility] | | | and [place] [...] Team Providers + +------+ + | Care Learning Solutions Specialist Name | Role | Phone | + +------+ + PCP | Unavailable | + +------+ + Encounter Details +--------+ + + + + | Date | Type | Department | Care Team | Description | +--------+ + + + + | 06/04/ | [facility] | [facility] | Lorena Aldridge | | | 2007 | Encounter | MED CTR XRAY [address] | L, TUBE PULLER [address] | | | | | [address] | [place] | | | | | [place] [address] | [address] | | | | | [phone] | | | +--------+ + + + [...]
--- OUTSIDE RECORDS SUMMARY | ~2020-05-02 | XMS | Encounter Summary ---
Demographics + + + | Address | [address] | | | [place] [address] | + + + | Home Phone | | + + + | Preferred Language | Unknown | + + + | Marital Status | | + + + | Rastafarian Affiliation | Unknown | + + + | Race | White | + + + | Ethnic Group | Not or | + + + Author + + + | Author | [facility] | | | and [place] | + + + | Organization | [facility] | | | and [...] Team Providers + +------+ + | Care Probe Operator Name | Role | Phone | + +------+ + | Lorena Aldridge | PCP | | + +------+ + Encounter Details +--------+ + + + + | Date | Type | Department | Care Team | Description | +--------+ + + + + | 07/07/ | [facility] | [facility] | Lorena Aldridge | | | 2009 | Encounter | MED CTR LABORATORY | KRISHNA Granados [address] | | | | | [address] | [place] | | | | | [place] | [address] | | | | | [address] | | | | | | [phone] | | | +--------+ + + + [...] | 0 | 01/06/20 | | | [id number] | Daily. | | | 10 | [...]
[~2020-05-02 13:53] MED LIST changes: +FAMOTIDINE20 MG PO
--- OUTSIDE RECORDS SUMMARY | 2020-05-02 13:56 | XMS ---
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 Mara has no Care Guidelines for this patient. Megan VISIT COUNT (12 MO.) [address] [facility] TOTAL 3 NOTE: Visits indicate total known visits. ED/C VISIT TRACKING (12 MO.) 05/02/2020 13:54 [facility] [place] TYPE: Emergency COMPLAINT: - WOUND CHECK 04/20/2020 11:33 FEDE Is[facility] TYPE: Emergency COMPLAINT: - SYNCOPE DIAGNOSES: - Other pulmonary embolism without acute cor pulmonale - Essential (primary) hypertension - correction (current) use of aspirin - Other residential (current) drug therapy - Personal history of nicotine dependence - Shortness of breath 01/24/2020 07:21 FEDE Isbell TYPE: Emergency COMPLAINT: - LEG SWELLING/ PAIN DIAGNOSES: - Personal history of nicotine dependence - Other residential (current) drug therapy - correction (current) use of aspirin - Essential (primary) hypertension - Pain in left knee - Localized edema INPATIENT VISIT TRACKING (12 MO.) 04/20/2020 16:22 Macarena DEL ROSARIO TYPE: Medical Surgical COMPLAINT: - CARDIOGENIC SHOCK; MULTIPLE PE'S; S/P TPA; HYPOTENSION DIAGNOSES: 0. Shortness of breath 1. Other pulmonary embolism with acute cor pulmonale 1. Mult subsegmental pulmon emboli without acute cor pulmonale 2. Myocardial infarction type 2 3. Acute respiratory failure with hypoxia 4. Cardiogenic shock 5. Acute embolism and thrombosis of left popliteal vein 6. Acidosis 7. Infection and inflammatory reaction due to other cardiac and 8. Essential (primary) hypertension 9. Hyperlipidemia, unspecified 10. Alcohol dependence, uncomplicated 11. Gout, unspecified 12. Other problems related to lifestyle 13. Aortic aneurysm of unspecified site, without rupture 14. Solitary pulmonary nodule 15. Other medical procedures as the cause of abnormal reaction of 16. Gross hematuria 17. Benign prostatic hyperplasia without lower urinary tract symp 18. Laceration without foreign body of left upper arm, initial en 19. Laceration without foreign body of right upper arm, initial e 20. Fall from or off toilet without subsequent striking against o 21. Bathroom of single-family (private) house as the place of occ 22. Pulmonary hypertension, unspecified 23. Unspecified right bundle-branch block [email or web address]
[2020-05-02] MEDS ORDERED: ELIQUIS5 MG PO (14:05)
== END 2020-05-02 14:52 | disposition home or self-care (01) ==
LOC: ED 13:53
DX: S40.022A Contusion of left upper arm, initial encounter (principal); W19.XXXA Unspecified fall, initial encounter; I10 Essential (primary) hypertension; Z87.891 Personal history of nicotine dependence; Z79.899 Other long term (current) drug therapy; Z79.82 Long term (current) use of aspirin
CPT/HCPCS: 99283

== ENCOUNTER 2020-12-02 16:41 | Emergency (ER) | payer MEDICARE, OTHER ==
[~2020-12-02] VITALS: Ht 182.9 cm; Wt 123.6 kg
[~2020-12-02 16:41] MED LIST changes: +ELIQUIS5 MG PO
[2020-12-02] MEDS ORDERED: VITAMIN D350 MC3 (16:52)
[2020-12-02] MEDS ORDERED: ELIQUIS5 MG PO (20:14)
--- NOTE | 2020-12-03 11:40 | EKG ---
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
== END 2020-12-02 20:32 | disposition home or self-care (01) ==
LOC: ED 16:41
DX: I26.99 Other pulmonary embolism without acute cor pulmonale (principal); I10 Essential (primary) hypertension; E78.00 Pure hypercholesterolemia, unspecified; M10.9 Gout, unspecified; Z87.891 Personal history of nicotine dependence; Z79.899 Other long term (current) drug therapy; Z79.82 Long term (current) use of aspirin
CPT/HCPCS: 71045; 71260; 80053; 83880; 84484; 85025; 93005; 93010; 99285-25; J1650; Q9967

== ENCOUNTER 2021-10-12 07:57 | Day surgery (SDC) | payer MEDICARE, OTHER ==
[~2021-10-12] VITALS: Ht 182.9 cm; Wt 113.6 kg
[~2021-10-12 07:57] MED LIST changes: +ALKA-SELTZER O1 EACH PO; +LIPITOR10 MG PO; +NIFEDIPINE ER60 MG PO; +VITAMIN D350 MC3
--- NOTE | 2021-10-12 11:08 | NUR ---
10/12/21 [address] 1041- PT TO PACU IN SUPINE POSITION. EYES CLOSED DOES NOT RESPOND TO VERBAL OR TACTILE STIMULI. BREATHING EASY AND UNLABORED. SPO2 >95% ON 6 L O2 VIA SIMPLE MASK. 1046- PT CONTINUES TO SLEEP WITH ORAL AIRWAY IN PLACE DESPITE VERBAL AND TACTILE STIMULI. BREATHING EASY AND UNLABORED. SPO2 >95% ON 6 L O2 VIA SIMPLE MASK. 1048- PT OPENS EYES AND FOLLOWS COMMANDS. ORAL AIRWAY O2 DC'D. BREATHING EASY AND UNLABORED. SPO2 >95%. PT DENIES PAIN AND NAUSEA. HOB ELEVATED . 1055- PT REMAINS AWAKE TALKING WITH RN AND MD ABOUT PROCEDURE. PT DENIES PAIN AND NAUSEA. ICE APPLIED TO SURGICAL SITE. PT REQUESTING WATER. VSS.
--- NOTE | 2021-10-12 11:12 | NUR ---
PT ARRIVES TO DS RM 6 FROM PACU AWAKE AND ALERT, SITTING UPRIGHT. PT HAS WATER ON ARRIVAL, DENIES NAUSEA OR PAIN. PT PROVIDED CRACKERS, TOLERATES WELL. SPOUSE AT BEDSIDE, DC CRITERIA EXPLAINED. CALL LIGHT WITHIN REACH.
[2021-10-12] MEDS ORDERED: OXYCODONE HCL10 MG PO (11:42)
--- NOTE | 2021-10-12 13:04 | NUR ---
[id number]: PT SITS AT SIDE OF BED AND DANGLES LEGS PRIOR TO STANDING. PT DENIES DIZZINESS OR NAUSEA WITH POSITION CHANGE, STANDS AND AMBULATES WITH STEADY GAIT TO BATHROOM WITH RN ASSIST. PT ABLE TO VOID APPROX 250 MLS YELLOW URINE WITH NO PROBLEMS, BACK TO DS RM 6. VS OBTAINED, IV REMOVED WITH USE OF ALCOHOL SWAB AND PRESSURE COBAN DRESSING PLACED. DC INSTRUCTIONS PRESENTED VERBALLY AND WRITTEN TO PT AND SPOUSE. PAIN PRESCRIPTION IN DC PACKET AND PT AND SPOUSE AWARE OF NEED TO TAKE TO PHARMACY TO HAVE FILLED. PT DRESSES SELF AND OPENS CURTAIN WHEN FINISHED. PT DC VIA WC FROM DS RM 6 TO PERSONAL VEHICLE TO HOME WITH SPOUSE.
--- NOTE | 2021-10-13 06:27 | OR ---
[facility] [address] [place], [place] [address] Signed DATE OF OPERATION: 10/12/2021 SURGEON: Neva Mark MD PREOPERATIVE DIAGNOSES: 1. Right preauricular skin lesion (15 mm). 2. Left chin stellate keratotic skin lesion (3 mm). POSTOPERATIVE DIAGNOSES: 1. Right preauricular skin lesion (15 mm). 2. Left chin stellate keratotic skin lesion (3 mm). PROCEDURES: 1. Excision of right preauricular skin lesion. 2. Excision of left chin skin lesion. ESTIMATED BLOOD LOSS: None. INDICATIONS: Les is a 80-year-old gentleman, who is borderline diabetic. He has been out in the sun throughout his entire life. He grew up on a farm and also went hunting and so forth. He is now retired. He has had various skin lesions removed in the past including a basal cell carcinoma from his back. Over the last four months, he has developed a skin lesion in the right preauricular skin. He has tried to hide it with the hair of his sideburn. He said it is growing fairly rapidly. We could see today that it was ulcerated in the center and had somewhat of a color to it. It could be another basal cell, but it also could be a squamous cell carcinoma. I explained to Faisal that is a bit much to do in the office under just simple local anesthetic. In fact, it required a 6 cm length incision and we had to bring the skin back together with development of skin flaps just a bit with the cautery. He also has a 3 mm keratotic skin lesion underneath his left chin. He asked if I could simply remove that at the same time. This certainly would be reasonable. I explained to Faisal and I hans pictures to demonstrate the vertical elliptical incision required to remove this lesion in front of his right ear. He understands the expected intraop and postop course. There is risk including, but not limited to bleeding, infection, scarring, change in contour of the skin as well as possible need for additional surgery or treatments based on the pathology results. He had expressed understanding and wished to proceed. Electronically Signed By: NEVA MARK MD 10/13/21 0627 PATIENT NAME: LES MERCADO OPERATIVE REPORT DATE OF : 44 REPORT #: [id number] PHYSICIAN: NEVA MARK MD PCP: MORRIS GASTON REPORT IS CONFIDENTIAL AND NOT TO BE RELEASED WITHOUT AUTHORIZATION [facility] [address] [place] [id number] Signed DESCRIPTION OF PROCEDURE: I met with Faisal and his in our preop area. We easily identified both skin lesions and marked them appropriately. After this, Faisal was taken in the operating room and placed in the supine position under general LMA anesthesia. He was given preoperative antibiotics along with subcutaneous heparin. He has had STONE hose in place. We left those in place and added our SCDs. He was then prepped and draped in the usual sterile fashion. We measured out the skin lesion at 15 mm in front of his right ear. We used a 6 cm long vertical elliptical incision. We injected local anesthetic and he moved around even with his LMA anesthesia. He did the same with the lesion underneath his left chin. We used a 15 blade knife then to develop our incision and carried it down and around the lesion full-thickness into the subcutaneous fat with the help of the cautery. We brought the skin and dermis back together with interrupted 3-0 subcuticular Monocryl sutures. We used a 5-0 fast absorbing running plain gut suture to bring the skin edges together as well. That incision will be left open to air. We then turned the small lesion underneath the left chin. We injected local anesthetic underneath that. We then used the Metzenbaum scissors to simply clip that off. We cauterized that very gently for hemostasis. That was also left open to air. After this, Faisal was weaned from his anesthesia, extubated in the OR, and taken to recovery room in stable condition. Neva Mark MD ALB/MODL /[id number] cc: DEMIAN Davenport MD Copies: MORRIS GASTON ANDREW L MD ~ Electronically Signed By: NEVA MARK MD 10/13/21 0627 PATIENT NAME: LES MERCADO OPERATIVE REPORT DATE OF : 44 REPORT #: [id number] PHYSICIAN: NEVA MARK MD PCP: MORRIS GASTON REPORT IS CONFIDENTIAL AND NOT TO BE RELEASED WITHOUT AUTHORIZATION
--- NOTE | 2021-10-17 11:22 | PATH ---
[facility] [address] [facility] [address] [place], [place] [address] Signed THIS IS AN ADDENDUM REPORT SPECIMEN(S): A RIGHT PREAURICULAR SPECIMEN(S): B LEFT CHIN SPECIMEN SOURCE: A. RIGHT PREAURICULAR B. LEFT CHIN CLINICAL HISTORY: Face skin lesions. FINAL PATHOLOGIC DIAGNOSIS: A. Skin, right preauricular, excision: - Invasive moderately-differentiated squamous cell carcinoma. - Surgical margins are negative for carcinoma. B. Skin, left chin, biopsy: - Verrucoid keratosis, see Comment. COMMENT: Regarding specimen B: Initial sections are incomplete and tangential but demonstrate a verrucoid keratosis with features of verruca vulgaris. Additional deeper levels are pending to evaluate more of the lesion and the results will be reported in an addendum. NAL:caw:C MICROSCOPIC EXAMINATION: Histologic sections of all submitted blocks are examined by light microscopy. These findings, together with the gross examination, support the pathologic diagnosis. GROSS DESCRIPTION: Two specimens are received in two containers, labeled "RM." A. The specimen, labeled "RM, right preauricular," is received in formalin and consists of skin ellipse that measure 5.5 x 2.4 x 0.4 cm. The skin surface shows round nodule that measure 2.0 cm in diameter. Surface of the nodule is ulcerated. The nodule is 0.2 cm from the nearest surgical margin. Specimen is oriented: Long-lateral, short-superior, double-inferior. They are arbitrarily designated: short-12 o'clock, double-6 o'clock and long-9 o'clock. Specimen is inked: 12-6-black, 6-12-blue. Specimen is serial sectioned from 12 to 6 PATIENT NAME: LES MERCADO PATHOLOGY DATE OF : 44 REPORT #: [id number] PHYSICIAN: MAYITO PATHOLOGY PCP: MORRIS GASTON REPORT IS CONFIDENTIAL AND NOT TO BE RELEASED WITHOUT AUTHORIZATION [facility] [address] [place], [place] [address] Signed o'clock and sequentially and entirely submitted in seven cassettes. Cassette summary: (A1-A3) 12 o'clock half (A4-A7) 6 o'clock half. B. The specimen, labeled "RM, left chin," is received in formalin and consists of one shaved skin tissue fragment that measure 0.4 cm in greatest dimension skin surface is pink-holloway, slightly granulated. Specimen is inked and bisected. Specimen is entirely submitted in cassette (B1). JS (under the direct supervision of a pathologist) The Gross Description was prepared using a voice recognition system. The report was reviewed for accuracy; however, sound-alike word errors, addition and/or deletions may occur. If there is any question about this report, please contact Client Services. PERFORMING LABORATORY: The technical component was performed by [facility], [address] [place] [id number] (Crotch Piece Baster: Cheyanne Marina MD; CLIA# [id number]). [facility], [address] [address] (CLIA# [id number]). REASON FOR ADDENDUM: To add results of additional levels examined. ADDENDUM PATHOLOGIC DIAGNOSIS: Regarding specimen B: Skin, left chin, biopsy: - Verrucoid keratosis, favor verruca vulgaris. ADDENDUM COMMENT: Multiple additional deeper levels of the skin biopsy were examined. The biopsy was tangentially sectioned, precluding definitive histologic examination. However, the lesion is favored to represent a verruca vulgaris. No carcinoma is identified. NAL:cml Professional interpretation [facility], [address] [place], [place] [address] (CLIA# [id number]). PATIENT NAME: LES MERCADO PATHOLOGY DATE OF : 44 REPORT #: [id number] PHYSICIAN: MAYITO HOOD PCP: MORRIS GASTON REPORT IS CONFIDENTIAL AND NOT TO BE RELEASED WITHOUT AUTHORIZATION [facility] [address] [facility] [place], [place] [address] Signed Diagnostician: Mary Solares MD Pathologist Electronically Signed 10/17/2021 Copies: ~ PATIENT NAME: LES MERCADO PATHOLOGY DATE OF : 44 REPORT #: [id number] PHYSICIAN: MAYITO HOOD PCP: MORRIS GASTON REPORT IS CONFIDENTIAL AND NOT TO BE RELEASED WITHOUT AUTHORIZATION
== END 2021-10-12 12:10 | disposition home or self-care (01) ==
LOC: DS 07:57
PROVIDERS: ATTEND Colon & Rectal Surgery
PROC: 0HB2XZZ Excision of Right Ear Skin, External Approach (ICD-10-PCS; principal; 2021-10-12 09:15)
DX: C44.329 Squamous cell carcinoma of skin of other parts of face (principal); L57.0 Actinic keratosis; I10 Essential (primary) hypertension; F17.210 Nicotine dependence, cigarettes, uncomplicated
CPT/HCPCS: J0690; J1100; J1644; J2001; J2405; J2704; J3010; J7121

== ENCOUNTER 2023-02-28 05:55 | Day surgery (SDC) | payer MEDICARE, OTHER | END 2023-02-28 09:02 | disposition home or self-care (01) | LOC: DS 05:55 | PROC: 0DBM8ZZ Excision of Descending Colon, Via Natural or Artificial Opening Endoscopic (ICD-10-PCS; principal; 2023-02-28) | PROC: 0DBL8ZZ Excision of Transverse Colon, Via Natural or Artificial Opening Endoscopic (ICD-10-PCS; 2023-02-28) | PROC: 0DBN8ZZ Excision of Sigmoid Colon, Via Natural or Artificial Opening Endoscopic (ICD-10-PCS; 2023-02-28) | PROC: 0DBP8ZZ Excision of Rectum, Via Natural or Artificial Opening Endoscopic (ICD-10-PCS; 2023-02-28) | DX: D12.4 Benign neoplasm of descending colon (principal); R19.5 Other fecal abnormalities; I10 Essential (primary) hypertension; Z87.891 Personal history of nicotine dependence; D68.59 Other primary thrombophilia; E78.00 Pure hypercholesterolemia, unspecified; K57.30 Diverticulosis of large intestine without perforation or abscess without bleeding; K64.8 Other hemorrhoids; D12.8 Benign neoplasm of rectum; D12.3 Benign neoplasm of transverse colon; K63.5 Polyp of colon ==

== ENCOUNTER 2024-10-28 09:23 | Day surgery (SDC) | payer MEDICARE, OTHER ==
--- NOTE | ~2024-10-28 | OR ---
[facility] [address] [place], [place] [address] Draft DATE OF OPERATION: 10/28/2024 SURGEON: Kota Spear MD PREOPERATIVE DIAGNOSIS: Nasal skin lesion. POSTOPERATIVE DIAGNOSIS: Nasal skin lesion. PROCEDURE: Wide excision of nasal skin lesion with a full-thickness skin graft repair. ANESTHESIA: General, LMA; DENTURE PACKER, Ceferino. PREOPERATIVE HISTORY: Les is an 83-year-old man with an exophytic ulcerated lesion on the nasal skin, very suspicious for neoplasia. He was taken to the operating room for the above-mentioned procedures. OPERATIVE PROCEDURE AND FINDINGS: After informed consent, the patient was taken to the operating room, placed in supine position where general LMA anesthesia was induced. The patient and procedure were verified. The patient was repositioned. Nasal skin, lower face and right neck were sterilely prepped and draped. Lesion in question was on the nasal dorsum about a cm above the ala mainly right-sided across the midline, measured approximately 2 cm in greatest diameter. After sterile prep and drape, the excision margins were marked with a marking pen, leaving 2 to 3 mm margins circumferentially around the lesion. The incision markings were injected with 1% lidocaine with epinephrine. The excision was made through skin down to subcutaneous tissue. A suture placed in superior edge of the lesion and was sent in formalin to Pathology. Hemostasis was obtained with needle point cautery. The wound edges were elevated to allow for tension-free closure. Full-thickness skin graft was taken from the right neck. The excision site measured about 20 mm x 18 mm. Appropriate sized elliptical excision was made in the right neck skin. 1% lidocaine was injected. The excision was made through full-thickness skin and hemostasis obtained with needle point cautery. The donor site was closed with 4-0 interrupted Vicryl and nichole in the skin. The full-thickness graft was trimmed, thinned, and placed in the recipient site and sutured into place with 4-0 interrupted Vicryl around the edges leaving long tails in four quadrants. A bolster was then placed PATIENT NAME: LES MERCADO OPERATIVE REPORT DATE OF : 44 REPORT #: [id number] PHYSICIAN: KOTA SPEAR MD PCP: MORRIS GASTON REPORT IS CONFIDENTIAL AND NOT TO BE RELEASED WITHOUT AUTHORIZATION [facility] [address] [place] [id number] Draft with petroleum gauze at the base and mineral oil impregnated cotton balls in the midportion. The bolster was tied down with the Vicryl for good compression of the graft. Skin was cleansed. The patient was awakened, extubated, transported to recovery room in good condition. No complications. BLOOD LOSS: Minimal. SPECIMEN: To Pathology. DRAINS: None. Kota Spear MD GC/NICHOLAS /[id number] Copies: ~ PATIENT NAME: LES MERCADO OPERATIVE REPORT DATE OF : 44 REPORT #: [id number] PHYSICIAN: KOTA SPEAR MD PCP: MORRIS GASTON REPORT IS CONFIDENTIAL AND NOT TO BE RELEASED WITHOUT AUTHORIZATION
[~2024-10-28 09:23] MED LIST changes: +LACTATED RINGER'S 1,000 ML IV SCH; +LIDOCAINE 1% W/ EPI 1:100,000 20 ML MDV ONE; +OMEPRAZOLE20 MG PO; +OXYCODONE HCL10 MG PO
[2024-10-28 09:58] VITALS: BP 133/62
[2024-10-28 10:14] LABS: BASOPHILS 0.7 % (0-2); EOSINOPHILS 7.3 % (0-6); HEMATOCRIT 48.4 % (35.0-50.0); LYMPHOCYTES 20.2 % (24-44); MCH 33.3 (27-36); MCHC 35.2 g/dl (30-36); MCV 94.9 fl (81-99); MONOCYTES 9.2 % (0-12); NEUTROPHILS 62.6 % (39-80); PLATELET COUNT 147 K/uL (140-440); RDW 14.5 (10.5-15.0)
[2024-10-28 10:30] LABS: ALBUMIN 3.7 g/dL (3.4-5.0); ALBUMIN/GLOBULIN RATIO 1.03 (1.1-2.4); ANION GAP 10.1 (7-21); BILIRUBIN, TOTAL 1.1 mg/dL (0.2-1.0); BUN/CREATININE RATIO 11.62 (6.0-28.6); CALCIUM 9.3 mg/dL (8.5-10.1); CREATININE, SERUM 0.86 mg/dL (0.70-1.30); POTASSIUM 4.1 mmol/L (3.5-5.1); PROTEIN, TOTAL 7.3 g/dL (6.4-8.2)
[2024-10-28] MEDS ORDERED: fentaNYL citrate 100 MCG/2 ML VIAL ONE (12:26)
[2024-10-28] MEDS ORDERED: LIDOCAINE HCL 2% 5 ML SDV ONE (12:26)
[2024-10-28] MEDS ORDERED: ondansetron HCL 4 MG/2 ML VIAL ONE (12:26)
[2024-10-28] MEDS ORDERED: propofoL 200 MG/20 ML VIAL ONE (12:26)
[2024-10-28] MEDS ORDERED: NALOXONE HCL 0.4 MG SYR IV PRN (13:30)
[2024-10-28] MEDS ORDERED: IBLOOD GLUCOSE TEST STRIP 1 EA TEST VI PRN (13:30)
[2024-10-28] MEDS ORDERED: fentaNYL citrate 50 MCG/ML SDV IV PRN (13:30)
[2024-10-28] MEDS ORDERED: droPERidol 5 MG/2 ML VIAL IV PRN (13:30)
[2024-10-28] MEDS ORDERED: ondansetron HCL 4 MG/2 ML VIAL IV PRN (13:30)
[2024-10-28] MEDS ORDERED: PROCHLORPERAZINE EDISYLATE 10 MG/2 ML VIAL IV PRN (13:30)
[2024-10-28] MEDS ORDERED: HYDROCODONE/ACETA 5/325 TAB PO PRN (13:45)
--- NOTE | 2024-10-28 13:50 | NUR ---
PT ARRIVES TO DS FROM PACU VIA STRETCHER. PT REPORTS NO PAIN OR NAUSEA AT THIS TIME. PT IS A&O AND ASKING QUESTIONS APPROPRIATELY. PT DRINKING ICE WATER AND STATES NOT HUNGRY AND REFUSES FOOD AT THIS TIME. CALL LIGHT WITHIN REACH. PT REPORTS NO FURTHER NEEDS OR QUESTIONS AT THIS TIME. REPORT RECEIVED FROM TEAGAN ZAYAS.
[2024-10-28 13:56] VITALS: BP 138/64
--- NOTE | 2024-10-28 13:56 | NUR ---
10/28/24 1356 Halima Minor 1328 PT ARRIVED IN PACU WIDE AWAKE WITH NO C/O'S. 1340 TALKING TO STAFF. 1350 TO DS. REPORT GIVEN TO RN. GLASSES AT BEDSIDE.
--- NOTE | 2024-10-28 14:30 | NUR ---
THIS RN SPEAKS W/ REGARDING PICKUP TIME. PT STATES SHE HAS TO DROP OFF GRANDCHILD AND THEN WILL COME PICKUP PT. VERIFIED W/PT AND HE IS AGREEABLE TO PLAN OF CARE AT THIS TIME. PT REPORTS NEED TO URINE VOID. PT TO RESTROOM FOR UNMEASURABLE URINE VOID. PT BACK TO ROOM AND GETTING DRESSED AT THIS TIME. CALL LIGHT WITHIN REACH. PT STATES NO FURTHER NEEDS OR QUESTIONS AT THIS TIME.
--- NOTE | 2024-10-28 15:15 | NUR ---
IN PT ROOM FOR VS AND ASSESSMENT. PT PULLED HIS IV OUT D/T REPORT OF IT BEING "IN THE WAY". NO SIGNS OF BLEEDING OR TRAUMA TO IV SITE AT THIS TIME. PT EDUCATED ABOUT IMPORTANCE OF HELP IN REMOVING IV D/T BLEEDING RISK, PT STATES VERBAL UNDERSTANDING AT THIS TIME. DC EDUCATION PROVIDED, PT STATES VERBAL UNDERSTANDING TO DC EDUCATION AT THIS TIME. PT OFF OF UNIT VIA WC TO PASSENGER SIDE OF VEHICLE. ALL BELONGINGS IN PT POSSESSION AT THIS TIME. PT REPORTS NO FURTHER NEEDS.
[2024-10-28 15:30] VITALS: BP 149/79
[2024-10-28] MEDS ORDERED: SEVOFLURANE 250 ML BTL INH ONE (16:24)
--- NOTE | 2024-10-28 20:39 | EKG ---
[facility] [address] [facility] [place] [address] Signed Sinus rhythm with 1st degree AV block Left axis deviation Right bundle branch block Abnormal ECG When compared with ECG of 21-FEB-2023 08:37, premature atrial complexes are no longer present OR interval has increased Borderline criteria for Lateral infarct are no longer present Confirmed by Winter Baig MD () on 10/28/2024 8:39:26 PM Electronically Signed By: WINTER BAIG MD 10/28/242038 PATIENT NAME: LES MERCADO DRU Electrocardiogram DATE OF : 44 PHYSICIAN: WINTER BAIG MD REPORT #: [id number] REPORT IS CONFIDENTIAL AND NOT TO BE RELEASED WITHOUT AUTHORIZATION
--- NOTE | 2024-10-30 14:59 | PATH ---
[facility] [address] [place], [place] [address] Signed SPECIMEN(S): A NASAL DORSUM SPECIMEN SOURCE: A. NASAL DORSUM CLINICAL HISTORY: Nasal skin cancer dorsum FINAL PATHOLOGIC DIAGNOSIS: Skin, nasal dorsum, excision: - Ulcerated basal cell carcinoma, infiltrative type - Basal cell carcinoma is present at the peripheral margin (approximately 6-9 o'clock) - The deep margin appears uninvolved BRP MICROSCOPIC EXAMINATION: Histologic sections of all submitted blocks are examined by light microscopy. These findings, together with the gross examination, support the pathologic diagnosis. GROSS DESCRIPTION: The specimen, labeled and designated "Berenice Mercado, nasal skin lesion dorsum," is received in formalin and consists of a 3 x 2.4 cm portion of skin excised to a depth of 0.4 cm. The skin is holloway with a suture indicating the superior edge which will subsequently be designated 12:00. There is a 0.8 x 0.9 cm raised portion of holloway-white skin with a 0.4 x 0.3 cm area of ulceration. This lesion is 0.5 cm away from the 3:00 margin, 0.7 cm away from the 6 and 9:00 margin, and 1 cm away from the 12:00 margin. Specimen is subsequently inked as follows: 3-6 o'clock blue, 6-9 o'clock orange, 9-12-3 o'clock black. The specimen is serially sectioned revealing no additional masses or lesions. The specimen is entirely submitted as follows: Cassette Summary: (A1) distal tips, 3 and 9:00 (A2) 3:00 Half (A3) 9:00 half AA (under the direct supervision of a pathologist) The Gross Description was prepared using a voice recognition system. The report was reviewed for accuracy; however, sound-alike word errors, addition and/or PATIENT NAME: LES MERCADO PATHOLOGY DATE OF : 44 REPORT #: [id number] PHYSICIAN: MAYITO PATHOLOGY PCP: MORRIS GASTON REPORT IS CONFIDENTIAL AND NOT TO BE RELEASED WITHOUT AUTHORIZATION [facility] [address] [facility] [place], [place] [address] Signed deletions may occur. If there is any question about this report, please contact Client Services. ADDITIONAL NOTES: Immunohistochemical and/or in situ hybridization studies if performed in this case included appropriate positive controls that reacted as expected. This test was developed and its performance characteristics determined by [facility] [employer]. It has not been cleared or approved by the U.S. Food and Drug Administration. The FDA has determined that such clearance or approval is not necessary. This test is used for clinical purposes. It should not be regarded as investigational or for research. [facility] is certified under the Clinical Laboratory Improvement Amendments of 1988 (CLIA) as qualified to perform high complexity clinical laboratory testing. PERFORMING LABORATORY: Technical component was performed by [facility], [address] [place] [address] (CLIA# [id number]). Professional interpretation was performed by [facility], [address] [place] [address] (CLIA#:[id number]). Diagnostician: Cisco Lee MD Pathologist Electronically Signed 10/30/2024 Copies: ~ PATIENT NAME: LES MERCADO PATHOLOGY DATE OF : 44 REPORT #: [id number] PHYSICIAN: MAYITO HOOD PCP: MORRIS GASTON REPORT IS CONFIDENTIAL AND NOT TO BE RELEASED WITHOUT AUTHORIZATION
== END 2024-10-28 15:30 | disposition home or self-care (01) ==
LOC: DS 09:23
PROVIDERS: Nurse Anesthetist, Certified Registered; ATTEND Otolaryngology
PROC: 0HB1XZZ Excision of Face Skin, External Approach (ICD-10-PCS; 2024-10-28)
PROC: 0HR1X73 Replacement of Face Skin with Autologous Tissue Substitute, Full Thickness, External Approach (ICD-10-PCS; principal; 2024-10-28 10:30)
DX: C44.311 Basal cell carcinoma of skin of nose (principal); I10 Essential (primary) hypertension; K21.9 Gastro-esophageal reflux disease without esophagitis; E78.00 Pure hypercholesterolemia, unspecified; Z79.01 Long term (current) use of anticoagulants; Z79.82 Long term (current) use of aspirin; Z79.899 Other long term (current) drug therapy; Z86.711 Personal history of pulmonary embolism
CPT/HCPCS: 00300; 36415; 80053; 85025; 88305; 93005; 93010; J2003; J2405; J2704; J3010